=== PATIENT | male | born 1965 | race Caucasian/White ===

== ENCOUNTER 2021-12-15 19:01 | Inpatient (IN) | payer OTHER, MEDICAID ==
[~2021-12-15] VITALS: Ht 185.4 cm; Wt 126.8 kg
[2021-12-15] MEDS ORDERED: ASPirin 325 MG TAB PO ONE (19:15)
[2021-12-15] MEDS ORDERED: NITROGLYCERIN 0.4 MG SL TAB SL ONE (19:15)
[2021-12-15 19:35] LABS: Basophils # (auto) 0 10 ^3/uL (0-0.2); Basophils % (auto) 0.3 % (0.0-2.0); Eosinophils # (auto) 0.1 10 ^3/uL (0-0.8); Eosinophils % (auto) 1.8 % (0.0-7.0); Hematocrit 38.3 % (41.0-53.0); Lymphocytes # (auto) 2.3 10 ^3/uL (0.4-5.4); Lymphocytes % (auto) 40.6 % (10.0-50.0); Mean Corpuscular Hemoglobin 33.3 pg (28.0-32.0); Mean Corpuscular Volume 97.9 fL (80.0-100.0); Monocytes # (auto) 0.7 10 ^3/uL (0-1.3); Monocytes % (auto) 11.6 % (0.0-12.0); Neutrophils # (auto) 2.6 10 ^3/uL (1.6-8.6); Neutrophils % (auto) 45.7 % (37.0-80.0); Red Blood Cells 3.91 10^6/uL (4.5-5.90); Red Cell Distribution Width 14.9 % (11.8-14.3); White Blood Cell 5.6 10^3/uL (4.4-10.8)
[2021-12-15 19:45] LABS: Albumin 3.3 g/dL (3.4-5.0); Calcium 8.6 mg/dL (8.5-10.1); Potassium 4.5 mmol/L (3.5-5.1)
[2021-12-15 19:49] LABS: BUN/Creatinine Ratio 14.6; Bilirubin, Total 0.3 mg/dL (0.2-1.0); Total Protein 7.1 g/dL (6.4-8.2)
[2021-12-15 19:50] LABS: Lactic Acid w/Reflex 2.4 mmol/L (0.4-2.0)
[2021-12-15 20:45] LABS: Urine Bacteria NONE SEEN /hpf (None Seen); Urine Blood Negative /uL (Negative); Urine Specific Gravity 1.019 (1.001-1.035); Urine WBC <1 /hpf (0 - 3)
[2021-12-15 20:56] LABS: Amphetamine Screen, Urine NEGATIVE (NEGATIVE); Barbiturate Scree,Urine NEGATIVE (NEGATIVE); Benzodiazephine Screen, Urine NEGATIVE (NEGATIVE); Cannabinoid Screen, Urine POSITIVE (NEGATIVE); Cocaine Screen, Urine NEGATIVE (NEGATIVE); Opiate Scree,Urine NEGATIVE (NEGATIVE); Phencyclidine Screen, Urine NEGATIVE (NEGATIVE)
[2021-12-15] MEDS ORDERED: DexAMETHasone SOD PHOS 10MG/1ML VIAL INJ IV ONE (21:45)
[2021-12-15] MEDS ORDERED: TEMAZEPAM 15 MG CAP PO PRN (23:00)
[2021-12-15] MEDS ORDERED: LISINOPRIL 5 MG TAB PO ONE (23:00)
[2021-12-15] MEDS ORDERED: DEXTROSE (50%) 50ML SYRG IV PRN (23:00)
[2021-12-15] MEDS ORDERED: ALBUTEROL SULF 2.5 MG/0.5ML(0.5%) NEB SOLN NEB PRN (23:00)
[2021-12-15] MEDS ORDERED: ACETAMINOPHEN 325 MG TAB PO PRN (23:00)
[2021-12-15] MEDS ORDERED: MORPHINE SULFATE INJ 2 MG/ml SYRG IV PRN (23:00)
[2021-12-15] MEDS ORDERED: ONDANSETRON HCL 4 MG/2 ML VIAL IV PRN (23:00)
[2021-12-15] MEDS ORDERED: NITROGLYCERIN 0.4 MG SL TAB SL PRN (23:00)
[2021-12-15 23:11] VITALS: BP 134/66
[2021-12-16] MEDS: InsuLIN REG 1unit/0.01ml Soln (100units/ml) SC SCH ×4 (00:36→18:00)
[2021-12-16] MEDS: cefTRIAXone 1GM/50ML D5W 50 ML IV SCH (05:06)
[2021-12-16] MEDS: ACCU-CHEK COMFORT CURVE STRIP VI SCH ×4 (05:57→18:00)
[2021-12-16] MEDS: LEVOTHYROXINE SODIUM 25 MCG TAB PO SCH (07:08)
[2021-12-16 09:30] VITALS: BP_SYST 123; BP_SYST 137; BP_DIAS 69; BP_DIAS 78
[2021-12-16] MEDS ORDERED: GLIP10TA9 PO (09:59)
[2021-12-16] MEDS ORDERED: LEVO88TA4 PO (09:59)
[2021-12-16] MEDS ORDERED: METF-372 PO (09:59)
[2021-12-16] MEDS ORDERED: ATOR40TA52 PO (09:59)
[2021-12-16] MEDS: ENOXAPARIN SOD 40 MG/0.4 ML SYRINGE SC SCH (10:00)
[2021-12-16 10:19] LABS: Albumin 3.4 g/dL (3.4-5.0); Potassium 4.8 mmol/L (3.5-5.1)
[2021-12-16] MEDS: ASPirin 81 mg TAB PO SCH (10:20)
[2021-12-16] MEDS: PANTOPRAZOLE 40 MG TAB PO SCH (10:20)
[2021-12-16] MEDS: ASCORBIC ACID 500 MG TAB PO SCH ×2 (10:20→21:58)
[2021-12-16] MEDS: ZINC SULFATE 220mg CAP or TAB PO SCH (10:20)
[2021-12-16 10:23] LABS: BUN/Creatinine Ratio 16.3; Bilirubin, Total 0.2 mg/dL (0.2-1.0); Total Protein 7.4 g/dL (6.4-8.2)
[2021-12-16] MEDS: LISINOPRIL 5 MG TAB PO SCH (10:23)
[2021-12-16 10:28] LABS: Basophils # (auto) 0 10 ^3/uL (0-0.2); Eosinophils # (auto) 0 10 ^3/uL (0-0.8); Mean Corpuscular Hgb Conc. 34.9 g/dL (32.0-36.0); Monocytes # (auto) 0.3 10 ^3/uL (0-1.3)
[2021-12-16 10:30] LABS: Basophils % (auto) 0.4 % (0.0-2.0); Hematocrit 38.6 % (41.0-53.0); Hemoglobin 13.5 g/dL (13.5-17.5); Lymphocytes # (auto) 0.9 10 ^3/uL (0.4-5.4); Lymphocytes % (auto) 10.4 % (10.0-50.0); Mean Corpuscular Hemoglobin 34.3 pg (28.0-32.0); Mean Corpuscular Volume 98.4 fL (80.0-100.0); Monocytes % (auto) 3.2 % (0.0-12.0); Neutrophils # (auto) 7.3 10 ^3/uL (1.6-8.6); Red Blood Cells 3.92 10^6/uL (4.5-5.90); Red Cell Distribution Width 15.5 % (11.8-14.3); White Blood Cell 8.5 10^3/uL (4.4-10.8)
[2021-12-16] MEDS ORDERED: REMDESIVIR PER PHARMACY 0 ML IV SCH (11:30)
[2021-12-16] MEDS ORDERED: DexAMETHasone 4 MG TAB PO ONE (11:30)
[2021-12-16 13:00] VITALS: BP 135/67
[2021-12-16] MEDS ORDERED: REMDESIVIR 100mg 100 MG in SODIUM CHL 0.9% 230 ML IV SCH (15:00)
[2021-12-16] MEDS ORDERED: REMDESIVIR 200 MG in NS 210ml LOADING DOSE ADULT IV ONE (15:00)
[2021-12-16 16:59] VITALS: BP 139/63
[2021-12-16] MEDS ORDERED: HYDROcodone-ACET 10/325MG TAB PO ONE (19:15)
[2021-12-16 22:00] VITALS: BP 133/67
[2021-12-16] MEDS ORDERED: ATORVASTATIN 20 MG TAB PO SCH (22:00)
[2021-12-17 05:00] VITALS: BP_SYST 109; BP_SYST 121; BP_DIAS 50; BP_DIAS 71
[2021-12-17] MEDS: InsuLIN REG 1unit/0.01ml Soln (100units/ml) SC SCH ×3 (05:57→12:00)
[2021-12-17] MEDS: ACCU-CHEK COMFORT CURVE STRIP VI SCH ×3 (06:04→12:00)
[2021-12-17 06:51] LABS: Basophils # (auto) 0.1 10 ^3/uL (0-0.2); Basophils % (auto) 0.8 % (0.0-2.0); Eosinophils # (auto) 0 10 ^3/uL (0-0.8); Hemoglobin 13.1 g/dL (13.5-17.5); Lymphocytes # (auto) 1.5 10 ^3/uL (0.4-5.4); Lymphocytes % (auto) 18.9 % (10.0-50.0); Mean Corpuscular Hemoglobin 33.9 pg (28.0-32.0); Mean Corpuscular Hgb Conc. 34.5 g/dL (32.0-36.0); Mean Corpuscular Volume 98.3 fL (80.0-100.0); Monocytes # (auto) 0.6 10 ^3/uL (0-1.3); Monocytes % (auto) 7.3 % (0.0-12.0); Neutrophils # (auto) 5.6 10 ^3/uL (1.6-8.6); Nucleated Red Blood Cells % 0.3 %; Red Blood Cells 3.87 10^6/uL (4.5-5.90); Red Cell Distribution Width 14.9 % (11.8-14.3); White Blood Cell 7.7 10^3/uL (4.4-10.8)
[2021-12-17 06:53] LABS: Potassium 4.7 mmol/L (3.5-5.1)
[2021-12-17 07:01] LABS: Albumin 3.1 g/dL (3.4-5.0); BUN/Creatinine Ratio 20.8; Bilirubin, Total 0.4 mg/dL (0.2-1.0); Calcium 8.7 mg/dL (8.5-10.1); Total Protein 6.9 g/dL (6.4-8.2)
[2021-12-17 09:00] VITALS: BP 160/60
[2021-12-17] MEDS ORDERED: ETOMIDATE (2MG/ML) 20ML VIAL IV ONE (09:35)
[2021-12-17] MEDS ORDERED: ROCURONIUM 10MG/ML 10ML VIAL IV ONE (09:36)
[2021-12-17] MEDS ORDERED: DexAMETHasone 4 MG TAB PO SCH (10:00)
[2021-12-17] MEDS: ASPirin 81 mg TAB PO SCH (10:00)
[2021-12-17] MEDS: ENOXAPARIN SOD 40 MG/0.4 ML SYRINGE SC SCH (10:00)
[2021-12-17] MEDS: LEVOTHYROXINE SODIUM 25 MCG TAB PO SCH (10:16)
[2021-12-17] MEDS: ZINC SULFATE 220mg CAP or TAB PO SCH (10:18)
[2021-12-17] MEDS: PANTOPRAZOLE 40 MG TAB PO SCH (10:19)
[2021-12-17] MEDS: ASCORBIC ACID 500 MG TAB PO SCH (10:19)
[2021-12-17] MEDS: LISINOPRIL 5 MG TAB PO SCH (10:20)
[2021-12-17] MEDS: cefTRIAXone 1GM/50ML D5W 50 ML IV SCH (10:21)
[2021-12-17] MEDS ORDERED: PRED20TA2 PO (10:39)
[2021-12-17] MEDS ORDERED: AMOX500T86 PO (10:39)
[2021-12-17 11:48] VITALS: BP 160/61
[2021-12-17] MEDS ORDERED: REMDESIVIR 100mg 100 MG in SODIUM CHL 0.9% 230 ML IV SCH (15:00)
== END 2021-12-17 12:54 | disposition home or self-care (01) | DRG 177 ==
LOC: ER 19:05 → TELE 23:04 → TELE-WESTW 12-16 09:28
PROVIDERS: ADMIT Nurse Practitioner; ATTEND Internal Medicine Pulmonary Disease
PROC: XW033E5 Introduction of Remdesivir Anti-infective into Peripheral Vein, Percutaneous Approach, New Technology Group 5 (ICD-10-PCS; principal; 2021-12-16)
DX: U07.1 COVID-19 (principal); J96.01 Acute respiratory failure with hypoxia; E11.9 Type 2 diabetes mellitus without complications; F17.210 Nicotine dependence, cigarettes, uncomplicated; E78.5 Hyperlipidemia, unspecified; E66.9 Obesity, unspecified; Z68.36 Body mass index [BMI] 36.0-36.9, adult; Z79.84 Long term (current) use of oral hypoglycemic drugs
CPT/HCPCS: 36415; 71045; 80053; 80307; 81001; 82962; 83605; 83880; 84484; 85025; 85379; 87040; 93005; 93306; 96365; 96375; G0378; J0696; J1100; J1815

== ENCOUNTER 2024-12-27 12:21 | Inpatient (IN) | payer MEDICARE, MEDICAID ==
[~2024-12-27] VITALS: Ht 180.3 cm; Wt 114.1 kg
[~2024-12-27 12:21] MED LIST: AMOX500T86 PO; ATOR40TA52 PO; GLIP10TA9 PO; LEVO88TA4 PO; METF-372 PO; PRED20TA2 PO
[2024-12-27 13:00] VITALS: RESP 12; O2SAT 91
--- NOTE | 2024-12-27 13:01 | ED.PDOC ---
History of Present Illness(SKN HPI Comments This is a 59 year-old male, with a Hx of DM and Neuropathy, who presents to the ED via EMS with a chief complaint of wound to the R gluteal cheek and R foot S/P fall X2 days ago. Patient reports wound to the R foot is healing. Redness is noted at the R gluteal cheek site upon evaluation. Patient has no further complaints at this time and otherwise denies N/V/D, fever, chills, dizziness, headache, or LOC. Chief Complaint: Wound Check Time Seen by MD: 12:33 Primary Care Provider: Elan History of Present Illness: Nurses Notes, Medications, Allergies Allergies: Coded Allergies: NO KNOWN ALLERGIES (Unverified , 12/15/21) Home Meds Active Scripts Prednisone (Prednisone) 20 Mg Tab, 20 MG PO BID for 5 Days, #10 TAB Prov:JAQUELINE BEY MD 12/17/21 Amoxicillin & Pot Clavulanate (Augmentin) 500 Mg Tab, 1 TAB PO BID, #14 TAB Prov:JAQEULINE BEY MD 12/17/21 Reported Medications Atorvastatin Calcium (ATORVASTATIN CALCIUM) 40 Mg Tab, 1 TAB PO QPM, #90 TAB 3 Refills 12/16/21 Levothyroxine Sodium (Levothyroxine Sodium) 88 Mcg Tab, 75 MCG PO QAM for 30 Days, MCG 12/16/21 Metformin Hydrochloride (Metformin Hcl) 1,000 Mg Tab, 1 TAB PO BID, #60 TAB 5 Refills 12/16/21 Glipizide (Glipizide) 10 Mg Tab, 10 MG PO DAILY for 30 Days, MG 12/16/21 Information Source: Patient Mode of Arrival: EMS Severity: Moderate Duration: Since onset Prehospital treatment: None Location: Buttock (Right ), Foot (R) Mechanism: Spontaneous Onset Immunization Status of Animal: Current Associated Signs and Symptoms: Other (wound to R gluteal cheek and R foot) Past Medical History PAST MEDICAL HISTORY: DM Past Medical History (Other): Neuropathy Family History Family History: Reviewed,noncontributory to illness Social History Smoker: Cigarettes Alcohol: Denies ETOH Use Drugs: Denies Drug Use Lives In: Home Constitutional: denies: chills, diaphoresis, fatigue, fever, malaise, sweats, weakness, others EENTM: denies: blurred vision, double vision, ear bleeding, ear discharge, ear drainage, ear pain, ear ringing, eye pain, eye redness, hearing loss, mouth pain, mouth swelling, nasal discharge, nose bleeding, nose congestion, nose pain, photophobia, tearing, throat pain, throat swelling, voice changes, others Respiratory: denies: cough, hemoptysis, orthopnea, SOB at rest, shortness of breath, SOB with excertion, stridor, wheezing, others Cardiovascular: denies: chest pain, dizzy spells, diaphoresis, Dyspnea on exertion, edema, irregular heart beat, left arm pain, lightheadedness, palpitations, PND, syncope, others Gastrointestinal: denies: abdomen distended, abdominal pain, blood streaked bowels, constipated, diarrhea, dysphagia, difficulty swallowing, hematemesis, melena, nausea, poor appetite, poor fluid intake, rectal bleeding, rectal pain, vomiting, others Genitourinary: denies: burning, dysuria, flank pain, frequency, hematuria, incontinence, penile discharge, penile sore, pain, testicle pain, testicle swelling, urgency, others Neurological: denies: dizziness, fainting, headache, left sided numbness, left sided weakness, numbness, paresthesia, pre-existing deficit, right sided numbness, right sided weakness, seizure, speech problems, tingling, tremors, weakness, others Musculoskeletal: denies: back pain, gout, joint pain, joint swelling, muscle pain, muscle stiffness, neck pain, others Integumetry: reports: wounds (R buttock cheek and R foot); denies: bruises, change in color, change in hair/nails, dryness, laceration, lesions, lumps, rash, others Allergic/Immunocompromised: denies: Difficulty Healing, Frequent Infections, Hives, Itching, others Hematologic/Lymphatic: denies: anemia, blood clots, easy bleeding, easy bruising, swollen glands, others Endocrine: denies: excessive hunger, excessive sweating, excessive thirst, excessive urination, flushing, intolerance to cold, intolerance to heat, unexplained weight gain, unexplained weight loss, others Psychiatric: denies: anxiety, bipolar disorder, depression, hopeless, panic disorder, schizophrenia, sleepless, suicidal, others All Other Systems: Reviewed and Negative Physical Exam General Appearance: Moderate Distress HEENT: Normal ENT Inspection, Pharynx Normal, TMs Normal Neck: Full Range of Motion, Non-Tender, Normal, Normal Inspection Respiratory: Chest Non-Tender, Lungs Clear, No Accessory Muscle Use, No Respiratory Distress, Normal Breath Sounds Cardiovascular: No Edema, No JVD, No Murmur, No Gallop, Normal Peripheral Pulses, Regular Rate/Rhythm Breast Exam: Deferred Gastrointestinal: No Organomegaly, Non Tender, No Pulsatile Mass, Normal Bowel Sounds, Soft Genitalia: Deferred Pelvic: Deferred Rectal: Deferred Extremities: No calf tenderness, Normal capillary refill, No pedal edema, Other (Amputation of bilateral toes) Musculoskeletal : Apperance: Normal Neurologic: Alert, bacon skinner II-XII nml as Tested, No Motor Deficits, Normal Affect, Normal Mood, No Sensory Deficits Cerebellar Function: NOT DONE Reflexes: NOT DONE Skin: Wounds (Right foot buttocks) Peripheral Pulses: 3+ Radial (R), 3+ Radial (L) Lymphatic: No Adenopathy Was a procedure done? Was a procedure done?: No Differential Diagnosis (INTG) Differential Diagnosis: Abrasion, Cellulitis, Fracture, Puncture Wound X-Ray, Labs, Meds, VS Vital Signs Date Time Temp Pulse Resp B/P (MAP) Pulse Ox O2 Delivery O2 Flow Rate FiO2 12/27/24 13:00 97.8 62 13 141/89 (106) 97 97.8 12/27/24 12:46 98.0 78 25 119/70 100 98.0 Lab Test 12/27/24 13:30 12/27/24 13:25 Range/Units POC Glucose 223 H 70-106 mg/dl White Blood Count 10.7 4.4-10.8 10^3/uL Red Blood Count 3.85 L 4.5-5.90 10^6/uL Hemoglobin 13.5 13.5-17.5 g/dL Hematocrit 38.6 L 41.0-53.0 % Mean Corpuscular Volume 100.4 H 80.0-100.0 fL Mean Corpuscular Hemoglobin 35.0 H 28.0-32.0 pg Mean Corpuscular Hemoglobin Concent 34.9 32.0-36.0 g/dL Red Cell Distribution Width 13.5 11.8-14.3 % Platelet Count 203 140-450 10^3/uL Mean Platelet Volume 7.4 6.9-10.8 fL Neutrophils (%) (Auto) 80.0 37.0-80.0 % Lymphocytes (%) (Auto) 13.0 10.0-50.0 % Monocytes (%) (Auto) 6.1 0.0-12.0 % Eosinophils (%) (Auto) 0.3 0.0-7.0 % Basophils (%) (Auto) 0.6 0.0-2.0 % Neutrophils # (Auto) 8.5 1.6-8.6 10 ^3/uL Lymphocytes # (Auto) 1.4 0.4-5.4 10 ^3/uL Monocytes # (Auto) 0.7 0-1.3 10 ^3/uL Eosinophils # (Auto) 0 0-0.8 10 ^3/uL Basophils # (Auto) 0.1 0-0.2 10 ^3/uL Nucleated Red Blood Cells 0.1 % Prothrombin Time 12.3 H 9.3-11.8 sec Prothrombin Time INR 1.18 H 0.9-1.15 Activated Partial Thromboplast Time 29.2 24.5-34.5 SEC Sodium Level 133 L 136-145 mmol/L Potassium Level 4.0 3.5-5.1 mmol/L Chloride Level 97 L 98-107 mmol/L Carbon Dioxide Level 28 20-31 mmol/L Anion Gap 8 5-15 Blood Urea Nitrogen 11 9-23 mg/dL Creatinine 0.86 0.700-1.30 mg/dL Glomerular Filtration Rate Calc 99 >90 mL/min BUN/Creatinine Ratio 12.8 10.0-20.0 Serum Glucose 215 H 74-106 mg/dL Lactic Acid Level 2.8 *H 0.4-2.0 mmol/L Calcium Level 9.1 8.7-10.4 mg/dL Total Bilirubin 0.6 0.2-1.0 mg/dL Aspartate Amino Transferase (AST) 60 H 13-40 U/L Alanine Aminotransferase (ALT) 54 H 7-40 U/L Alkaline Phosphatase 96 46-116 U/L Total Protein 7.0 5.7-8.2 g/dL Albumin 3.8 3.2-4.8 g/dL Current Medications Medications (Trade) Dose Ordered Sig/Yuliya Route Start Time Stop Time Status Last Admin Insulin Human Regular (InsuLIN R) 10 units ONCE ONCE IV 12/27/24 13:15 12/27/24 13:17 DC 12/27/24 13:39 Vancomycin HCl 250 ml @ 250 mls/hr ONCE ONCE IV 12/27/24 13:15 12/27/24 14:14 DC 12/27/24 13:40 Patient alert. Has a wound in the right foot as along the buttocks. AST ALT elevated. Answering questions. Lactic acid elevated. Was given antibiotics. Blood sugar elevated. Establish intravenous access. Was given fluids. Explained to the patient. Continue monitoring. Images Reviewed?: Images reviewed and evaluated by me Time of 1ST Reevaluation: 13:32 Reevaluation 1ST: Unchanged Patient Education/Counseling: Diagnosis, Treatment Family Education/Counseling: No Family Present Medical Screening: No EMC Exist At This Time SEPSIS Sepsis Screen Date sepsis recognized/suspect: Dec 27, 2024 Time Sepsis recognized/suspect: 1249 Recent Procedure: No On Antibiotic Therapy: No Respiratory Rate >20: No Heart Rate >90: No Temp<36 C (96.8 F) or >38.3 C: No SBP <90 or MAP <65 mmHG: No New Acute Mental Status Change: No Is the patient on CPAP, BIPAP,: No Physician Orders Urinalysis (12/27/24 13:14) Chest Portable (12/27/24 13:14) Accucheck (12/27/24 13:14) Blood Culture (12/27/24 13:14) Cefepime 1gm/50ml (Maxipime 1gm/50ml) (12/27/24 14:00) Notify Md If Map <65 Or Bp<90 (12/27/24 13:14) If Map<65 Start Vasopressor (12/27/24 13:14) Sepsis Reassesment After Fluid (12/27/24 14:14) Vital Signs Date Time Temp Pulse Resp B/P (MAP) Pulse Ox O2 Delivery O2 Flow Rate FiO2 12/27/24 13:00 97.8 62 13 141/89 (106) 97 97.8 12/27/24 12:46 98.0 78 25 119/70 100 98.0 Laboratory Tests Test 12/27/24 13:25 Lactic Acid Level 2.8 mmol/L (0.4-2.0) *H White Blood Count 10.7 10^3/uL (4.4-10.8) Medications Medications Dose Ordered Sig/Yuliya Route Start Time Stop Time Status Last Admin Dose Admin Insulin Human Regular 10 units ONCE ONCE IV 12/27/24 13:15 12/27/24 13:17 DC 12/27/24 13:39 Vancomycin HCl 250 ml @ 250 mls/hr ONCE ONCE IV 12/27/24 13:15 12/27/24 14:14 DC 12/27/24 13:40 Departure 1 Departure Time of Disposition: 14:49 Impression: Primary Impression: Sepsis, unspecified organism Qualified Codes: A41.9 - Sepsis, unspecified organism Disposition: ADMITTED INPATIENT Admit to: Med Surg Condition: Guarded Critical Care Note Critical Care Time?: Yes (90 min-critical care time only) Stability Stability form required: No Heart Score Heart Score: Heart Score Response (Comments) Value History N/A 0 EKG N/A 0 Age N/A 0 Risk Factors N/A 0 Troponin N/A 0 Total 0 I personally scribed for ARMIDA DONATO MD ([email or web address]) on 12/27/24 at 13:01. Electronically submitted by Jenna Wagner ([facility]). I personally scribed for ARMIDA DONATO MD ([email or web address]) on 12/27/24 at 13:08. Electronically submitted by Jenna Wagner ([facility]). I personally scribed for ARMIDA DONATO MD ([email or web address]) on 12/27/24 at 13:11. Electronically submitted by Jenna Wagner ([facility]). I personally scribed for ARMIDA DONATO MD ([email or web address]) on 12/27/24 at 13:19. Electronically submitted by Jenna Wagner ([facility]). ARMIDA DONATO MD Dec 27, 2024 13:01
[2024-12-27] MEDS: InsuLIN REG 1unit/0.01ml Soln (100units/ml) IV ONE (13:39)
[2024-12-27] MEDS: VANCOMYCIN 1GM/250ML KIT 250 ML IV ONE (13:40)
[2024-12-27 13:41] LABS: Hematocrit 38.6 % (41.0-53.0); Hemoglobin 13.5 g/dL (13.5-17.5); Mean Corpuscular Hemoglobin 35.0 pg (28.0-32.0); Mean Corpuscular Volume 100.4 fL (80.0-100.0); Nucleated Red Blood Cells % 0.1 %
[2024-12-27 13:53] LABS: INR 1.18 (0.9-1.15); Partial Thromboplastin Time 29.2 SEC (24.5-34.5); Prothrombin Time 12.3 sec (9.3-11.8)
--- NOTE | 2024-12-27 13:57 | DVH ---
EXAM: XY CHEST PORTABLE Indication: sob Technique: Single frontal view of the chest was obtained Comparison: CHEST PORTABLE on DOS: 12/15/21, CXRP on DOS: 12/15/21 FINDINGS: Lines and Tubes: None Lungs: No focal consolidation. Pleura: No effusion. No pneumothorax. Cardiomediastinal contours: Unremarkable Bones: No acute osseous abnormality. IMPRESSION: No acute cardiopulmonary disease.
[2024-12-27 14:00] LABS: Albumin 3.8 g/dL (3.2-4.8); Alkaline Phosphatase 96 U/L (46-116); Anion Gap 8 (5-15); BUN/Creatinine Ratio 12.8 (10.0-20.0); Bilirubin, Total 0.6 mg/dL (0.2-1.0); Blood Urea Nitrogen 11 mg/dL (9-23); Calcium 9.1 mg/dL (8.7-10.4); Carbon Dioxide 28 mmol/L (20-31); Potassium 4.0 mmol/L (3.5-5.1); Total Protein 7.0 g/dL (5.7-8.2)
[2024-12-27 14:03] LABS: Alanine Aminotransferase 54 U/L (7-40); Chloride 97 mmol/L (98-107); Glucose 215 mg/dL (74-106); Sodium 133 mmol/L (136-145)
[2024-12-27 14:07] LABS: Lactic Acid w/Reflex 2.8 mmol/L (0.4-2.0)
[2024-12-27] MEDS: CEFEPIME 1GM/50ML 50 ML IV ONE (14:52)
[2024-12-27] MEDS ORDERED: SODIUM CHLORIDE 0.9% 1,000 ML IV ONE (15:00)
[2024-12-27] MEDS: SODIUM CHLORIDE 0.9% 1,000 ML IV ONE (15:23)
[2024-12-27] MEDS ORDERED: DEXTROSE (50%) 50ML SYRG IV PRN (15:45)
[2024-12-27] MEDS ORDERED: ONDANSETRON HCL 4 MG/2 ML VIAL IV PRN (15:45)
[2024-12-27] MEDS ORDERED: ACETAMINOPHEN 325 MG TAB PO PRN (15:45)
[2024-12-27] MEDS ORDERED: VANCOMYCIN PER PHARMACY 0 MG IV SCH (15:45)
--- NOTE | 2024-12-27 16:16 | DVH ---
EXAM: CT CT AB PEL WO CON-NO ORAL OR IV INDICATION: pleviccellulitis TECHNIQUE: Volumetric multidetector CT images of the abdomen and pelvis were obtained without contras t. All CT scans at this facility use dose modulation, iterative reconstruction, and/or weight based d osing when appropriate to reduce radiation dose to as low as reasonably achievable. COMPARISON: [facility] on DOS: 12/16/21 FINDINGS: [LOWER CHEST]: The partially visualized lung bases are clear without a pleural effusion. The cardiac size is normal without pericardial effusion. [LIVER]: Normal hepatic size without suspicious focal lesion. [GALLBLADDER AND BILIARY TREE]: No cholelithiasis. [SPLEEN]: Unremarkable. [PANCREAS]: Unremarkable. [ADRENAL GLANDS]: Unremarkable [KIDNEYS]: No hydronephrosis. No nephroureterolithiasis. [BLADDER]: Unremarkable for the degree distention. [REPRODUCTIVE ORGANS]: Unremarkable. [BOWEL/MESENTERY]: Stomach is normal. No CT evidence of bowel obstruction. proximal sigmoid colonic d iverticulosis. [ASCITES]: Absent [LYMPHADENOPATHY]: No pathologically enlarged lymph nodes by CT size criteria [VASCULATURE]: No aneurysmal dilatation. [ABDOMINAL WALL]: Unremarkable. [MUSCULOSKELETAL]: Significant abnormal air-fluid collection located along the left medial inferior b uttock extending towards the rectum measuring 8 x 5.4 cm. Edema extending superiorly along the ischio anal fossa. Significant abnormal inflammatory stranding extending along the intergluteal cleft and as ymmetric thickening possibly of the left external sphincter of the anal verge. Multifocal degenerativ e change of the visualized spine. IMPRESSION: 1. Significant abnormal air-fluid collection located along the left medial inferior buttock extending towards the rectum measuring 8 x 5.4 cm. 2. Edema extending superiorly along the ischioanal fossa. 3. Significant abnormal inflammatory stranding propagating along the intergluteal cleft and asymmetri c thickening possibly of the left external sphincter of the anal verge. 4. Overall appearance superior rectal abscess however correlate for sequelae of sacral decubitus jeanette reaves
--- NOTE | 2024-12-27 16:33 | DVH ---
ULTRASOUND ABDOMEN, LIMITED RIGHT UPPER QUADRANT: REASON FOR EXAM: transaminitis TECHNIQUE: Real-time sector scans in the transverse and longitudinal planes were obtained through th e right upper quadrant of the abdomen. FINDINGS: The liver is enlarged at 23.3 cm in length. The liver is diffusely echogenic. There is he patopetal flow in the portal vein. There is no intrahepatic nor extrahepatic biliary ductal dilatati on. The common bile duct measures 4 mm. No gallstones or sludge are identified. There is no gallbl adder wall thickening nor pericholecystic fluid. There is no sonographic Moreno's sign. The visualized portion of the pancreas is unremarkable. The right kidney measures 11.8 cm. No hydronephrosis or nephrolithiasis is identified. There is no evidence of right renal mass or cyst. The visualized portions of the abdominal aorta demonstrate no evidence of aneurysmal dilatation. The visualized inferior vena cava is unremarkable. There is no free fluid identified in the right upper quadrant. IMPRESSION: Hepatomegaly The liver is diffusely echogenic which may be secondary to steatosis or another diffuse hepatic proce ss. Correlate clinically and with liver function tests.
[2024-12-27] MEDS: SODIUM CHLORIDE 0.9% 1,000 ML IV SCH (16:52)
--- NOTE | 2024-12-27 16:56 | DVHHPRES ---
History of Present Illness Resident Creating Document: PAUL BOYCE RESIDENT Reason for Visit: Wound check History of Present Illness This is a 59-year-old male who came into the ED via EMS with a chief complain of wound in the right gluteal area. PMH: Type 2 diabetes, diabetic neuropathy. PSH: Bilateral metatarsal amputation, hernia surgery. SH: Drinks alcohol occasionally, smokes tobacco since 50 years ago one pack per day. States having done meth for 14 years, quit 25 years ago. Patient states that he has a fall from the toilet three days ago, due to his bilateral metatarsal amputation he sometimes has trouble walking, he misstepped and fell on his buttock area did not hit his head and did not lose consciousness. He states having significant pain and bleeding from the area. For the next couple of days he started experiencing chills, fevers, fatigue, diaphoresis, general malaise. He denies any chest pain, shortness of breath, abdominal pain, nausea, vomiting, urinary symptoms, diarrhea. He denies any recent sick contacts. On arrival to the ED, patient was given 2 L IV fluids, he was started on cefepime and vancomycin. Insulin IV was given. He was noted to have hyp erglycemia, lactic acidosis. On my initial assessment, patient was seen and examined at bedside, he stated having moderate pain on the right gluteal and perianal area. He denied any other symptoms. Review of Systems Constitutional: Yes: Fever, Chills, Sweats, Weakness, Malaise; No: Other Eyes: No: Pain, Vision change, Conjunctivae inflammation, Eyelid inflammation, Other, Redness ENT: No: Ear pain, Ear discharge, Nose pain, Nose discharge, Nose congestion, Mouth pain, Mouth swelling, Throat pain, Throat swelling, Other Respiratory: No: Cough, Dry, Shortness of breath, SOB with excertion, Wheezing, Hemoptysis, Pleuritic Pain, Sputum, Wheezing, Other Cardiovascular: No: Chest Pain, Palpitations, Orthopnea, Paroxysmal Noc. Dyspnea, Edema, Lt Headedness, Other Gastrointestinal: No: Nausea, Vomiting, Abdominal Pain, Diarrhea, Constipation, Melena, Hematochezia, Other Genitourinary: No Dysuria, No Frequency, No Incontinence, No Hematuria, No Retention, No Other Musculoskeletal: No: other, neck pain, shoulder pain, arm pain, back pain, hand pain, leg pain, foot pain Skin: Lesions; No: Rash, Jaundice, Bruising, Other Neurological: No: Weakness, Numbness, Incoordination, Change in speech, Confusion, Seizures, Other Allergies: Coded Allergies: NO KNOWN ALLERGIES (Unverified , 12/15/21) Medications Current Medications Medications Dose Ordered Sig/Yuliya Route Start Time Stop Time Status Last Admin Dose Admin Sodium Chloride 10 ml Q8HR IV 12/27/24 22:00 Sodium Chloride 1,000 ml @ 120 mls/hr Q8H20M IV 12/27/24 15:45 Acetaminophen 325 mg Q4HP PRN PO 12/27/24 15:45 Ondansetron HCl 4 mg Q4HP PRN IV 12/27/24 15:45 Enoxaparin Sodium 40 mg DAILY SC 12/28/24 10:00 Morphine Sulfate 2 mg Q4HPRN PRN IV 12/27/24 15:45 Diagnostic Test (Pha) 1 strip ACHS 12/27/24 17:00 Insulin Human Regular ACHS SC 12/27/24 17:00 Dextrose 50 ml UD PRN IV 12/27/24 15:45 Cefepime HCl 50 ml @ 12.5 mls/hr Q8HR IV 12/27/24 22:00 Vancomycin HCl 0 ml @ 0 mls/hr UD IV 12/27/24 15:45 Exam Vital Signs Vital Signs Date Time Temp Pulse Resp B/P (MAP) Pulse Ox O2 Delivery O2 Flow Rate FiO2 12/27/24 16:06 97.1 78 23 124/73 (90) 94 97.1 12/27/24 13:00 Room Air* 0 21 Exam Physical examination as below: General: Awake, alert, in no acute distress. HEENT: Head is normocephalic and atraumatic. Pupils are equal, round, and reactive to light. Extraocular muscles are intact. No nasal discharge. No facial trauma. Neck: Supple with no cervical lymphadenopathy. Heart: Regular rate without murmur, rub, or gallop. Lungs: Equal breath sounds bilaterally with no wheezing, rales, or rhonchi. There is no chest wall tenderness or instability. Abdomen:Bowel sounds are present. Abdomen is soft, nontender. No rebound, no guarding, no rigidity. There are no palpable masses. There is no flank pain on exam. Old Surgical scar on periumbilical area, no signs of infection. Extremities: Peripheral pulses present. No cyanosis, and no edema. Bilateral transmetatarsal amputation Skin: Right lower gluteal area erythematous, with tenderness to palpation, with a small we will ulcer wound draining yellow whitish fluid foul odor, area of fluctuance. On perianal area there is skin colored, fleshy, cauliflower-like growths extending up to the genital area. Neurologic: Cranial nerves II-XII intact without motor, sensory, or cerebellar deficit, no asterixis. Physical examination was performed with dowel pin man present. Labs/Xrays Labs Test 12/27/24 15:41 12/27/24 13:30 12/27/24 13:25 Range/Units Lactic Acid Level 1.4 0.4-2.0 mmol/L POC Glucose 223 H 70-106 mg/dl White Blood Count 10.7 4.4-10.8 10^3/uL Red Blood Count 3.85 L 4.5-5.90 10^6/uL Hemoglobin 13.5 13.5-17.5 g/dL Hematocrit 38.6 L 41.0-53.0 % Mean Corpuscular Volume 100.4 H 80.0-100.0 fL Mean Corpuscular Hemoglobin 35.0 H 28.0-32.0 pg Mean Corpuscular Hemoglobin Concent 34.9 32.0-36.0 g/dL Red Cell Distribution Width 13.5 11.8-14.3 % Platelet Count 203 140-450 10^3/uL Mean Platelet Volume 7.4 6.9-10.8 fL Neutrophils (%) (Auto) 80.0 37.0-80.0 % Lymphocytes (%) (Auto) 13.0 10.0-50.0 % Monocytes (%) (Auto) 6.1 0.0-12.0 % Eosinophils (%) (Auto) 0.3 0.0-7.0 % Basophils (%) (Auto) 0.6 0.0-2.0 % Neutrophils # (Auto) 8.5 1.6-8.6 10 ^3/uL Lymphocytes # (Auto) 1.4 0.4-5.4 10 ^3/uL Monocytes # (Auto) 0.7 0-1.3 10 ^3/uL Eosinophils # (Auto) 0 0-0.8 10 ^3/uL Basophils # (Auto) 0.1 0-0.2 10 ^3/uL Nucleated Red Blood Cells 0.1 % Prothrombin Time 12.3 H 9.3-11.8 sec Prothrombin Time INR 1.18 H 0.9-1.15 Activated Partial Thromboplast Time 29.2 24.5-34.5 SEC Sodium Level 133 L 136-145 mmol/L Potassium Level 4.0 3.5-5.1 mmol/L Chloride Level 97 L 98-107 mmol/L Carbon Dioxide Level 28 20-31 mmol/L Anion Gap 8 5-15 Blood Urea Nitrogen 11 9-23 mg/dL Creatinine 0.86 0.700-1.30 mg/dL Glomerular Filtration Rate Calc 99 >90 mL/min BUN/Creatinine Ratio 12.8 10.0-20.0 Serum Glucose 215 H 74-106 mg/dL Calcium Level 9.1 8.7-10.4 mg/dL Total Bilirubin 0.6 0.2-1.0 mg/dL Aspartate Amino Transferase (AST) 60 H 13-40 U/L Alanine Aminotransferase (ALT) 54 H 7-40 U/L Alkaline Phosphatase 96 46-116 U/L Total Protein 7.0 5.7-8.2 g/dL Albumin 3.8 3.2-4.8 g/dL SEPSIS Sepsis Screen Date sepsis recognized/suspect: Dec 27, 2024 Time Sepsis recognized/suspect: 1249 Recent Procedure: No On Antibiotic Therapy: No Respiratory Rate >20: No Heart Rate >90: No Temp<36 C (96.8 F) or >38.3 C: No SBP <90 or MAP <65 mmHG: No New Acute Mental Status Change: No Is the patient on CPAP, BIPAP,: No Physician Orders Urinalysis (12/27/24 13:14) Chest Portable (12/27/24 13:14) Accucheck (12/27/24 13:14) Blood Culture (12/27/24 13:14) Cefepime 1gm/50ml (Maxipime 1gm/50ml) (12/27/24 14:00) Notify Md If Map <65 Or Bp<90 (12/27/24 13:14) If Map<65 Start Vasopressor (12/27/24 13:14) Sepsis Reassesment After Fluid (12/27/24 14:14) Ct Ab Pel Wo Con-No Oral Or Iv (12/27/24 14:51) Admit (12/27/24 15:40) Allergies (12/27/24 15:40) Code Status (12/27/24 15:40) Sodium Chloride Lock (Saline Lock Ns) (12/27/24 22:00) Sodium Chloride 0.9% (12/27/24 15:45) Acetaminophen Tablet (Tylenol Tablet) (12/27/24 15:45) Ondansetron Hcl (Zofran) (12/27/24 15:45) Enoxaparin Sodium (Lovenox) (12/28/24 10:00) Complete Blood Count (12/28/24 04:00) Comprehensive Metabolic Panel (12/28/24 04:00) Condition: Fair (12/27/24 15:40) Morphine Sulfate Injection (12/27/24 15:45) Notify Md Of Changes From Base (12/27/24 15:40) Glucose Blood (Accu-Chek Comfort Curve T (12/27/24 17:00) Insulin R (Human) (Insulin R) (12/27/24 17:00) Dextrose 50% Syringe (12/27/24 15:45) Urine Bacterial Culture (12/27/24 15:40) Drug Screen (12/27/24 15:40) Hiv 1&2 Antibody (12/27/24 15:40) LIVER (12/27/24 15:40) Cefepime 1gm/50ml (Maxipime 1gm/50ml) (12/27/24 22:00) Vancomycin Per Pharmacy (12/27/24 15:45) Mrsa Screen (12/27/24 15:40) Consistent Carb(Ccho)Diabetes (12/27/24 Dinner) Acute Hepatitis Panel (12/27/24 16:13) Hepatitis C Antibody (12/27/24 16:13) Hemoglobin A1c (12/27/24 16:13) Lipid Panel (12/27/24 16:13) * Wound Consult (12/27/24 ) Wound Culture W/ Gs (12/27/24 16:13) Vital Signs Date Time Temp Pulse Resp B/P (MAP) Pulse Ox O2 Delivery O2 Flow Rate FiO2 12/27/24 16:06 97.1 78 23 124/73 (90) 94 97.1 12/27/24 13:00 12 91 Room Air* 0 21 12/27/24 13:00 97.8 62 13 141/89 (106) 97 97.8 12/27/24 12:46 98.0 78 25 119/70 100 98.0 Laboratory Tests Test 12/27/24 13:25 12/27/24 15:41 Lactic Acid Level 2.8 mmol/L (0.4-2.0) *H 1.4 mmol/L (0.4-2.0) White Blood Count 10.7 10^3/uL (4.4-10.8) Medications Medications Dose Ordered Sig/Yuliya Route Start Time Stop Time Status Last Admin Dose Admin Cefepime HCl 50 ml @ 12.5 mls/hr ONCE ONCE IV 12/27/24 14:00 12/27/24 17:59 12/27/24 14:52 12.5 MLS/HR Insulin Human Regular 10 units ONCE ONCE IV 12/27/24 13:15 12/27/24 13:17 DC 12/27/24 13:39 10 UNITS Sodium Chloride 1,000 ml @ 1,000 mls/hr Q1H ONCE IV 12/27/24 15:00 12/27/24 15:59 DC 12/27/24 15:23 1,000 MLS/HR Vancomycin HCl 250 ml @ 250 mls/hr ONCE ONCE IV 12/27/24 13:15 12/27/24 14:14 DC 12/27/24 13:40 250 MLS/HR Assessment/Plan Assessment/Plan #Left Gluteal abscess, rule out rectal fistula #Lactic acidosis #Anal condyloma acuminatum IV fluid bolus given Continue 150 mL per hour of normal saline Cefepime IV Vancomycin IV Clindamycin IV Lactic acid, blood culture, urinalysis, HIV, hepatitis panel, MRSA screen, UDS Wound consult, wound culture Pending CT abdomen and pelvis Surgical consult #Transaminitis Order liver ultrasound #Type 2 diabetes with hyperglycemia, uncontrolled #Bilateral transmetatarsal amputations SSI mild Ordered A1c #Obesity #Dyslipidemia Lipitor 40 mg p.o. q.d. Order lipid panel #Hypothyroidism Levothyroxine 75 mcg q.d. Order TSH #Methamphetamine/Tobacco use disorder Counseled for 16 minutes on tobacco use cessation and 12 minutes for methamphetamine use cessation DVT prophylaxis: Lovenox Goals of care were discussed for 20minutes. Full code Case was discussed with Dr. Lo Plan discussed with: Patient, Other (RN) My Orders Orders - PAUL BOYCE RESIDENT Procedure Category Date Status Time Admit ADMIT 12/27/24 Transmitted 15:40 Allergies ORIN 12/27/24 In Process 15:40 Code Status CODE 12/27/24 Transmitted 15:40 Sodium Chloride Lock PHA 12/27/24 In Process (Saline Lock Ns) 22:00 Sodium Chloride 0.9% PHA 12/27/24 In Process 15:45 Acetaminophen Tablet PHA 12/27/24 In Process (Tylenol Tablet) 15:45 Ondansetron Hcl PHA 12/27/24 In Process (Zofran) 15:45 Enoxaparin Sodium PHA 12/28/24 In Process (Lovenox) 10:00 Complete Blood Count LAB 12/28/24 Verified 04:00 Comprehensive LAB 12/28/24 Verified Metabolic Panel 04:00 Condition: Fair ORIN 12/27/24 In Process 15:40 Morphine Sulfate PHA 12/27/24 In Process Injection 15:45 Notify Of Changes ORIN 12/27/24 In Process From Base 15:40 Glucose Blood PHA 12/27/24 In Process (Accu-Chek Comfort 17:00 Insulin R (Human) PHA 12/27/24 In Process (Insulin R) 17:00 Dextrose 50% Syringe PHA 12/27/24 In Process 15:45 Urine Bacterial STEFF 12/27/24 Logged Culture 15:40 Drug Screen LAB 12/27/24 Logged 15:40 Hiv 1&2 Antibody LAB 12/27/24 In Process 15:40 LIVER US 12/27/24 Taken 15:40 Cefepime 1gm/50ml PHA 12/27/24 In Process (Maxipime 1gm/50ml) 22:00 Vancomycin Per PHA 12/27/24 In Process Pharmacy 15:45 Mrsa Screen STEFF 12/27/24 Logged 15:40 Consistent DIET 12/27/24 Transmitted [facility]Diabetes Dinner Acute Hepatitis Panel LAB 12/27/24 Transmitted 16:13 Hepatitis C Antibody LAB 12/27/24 Transmitted 16:13 Hemoglobin A1c LAB 12/27/24 Transmitted 16:13 Lipid Panel LAB 12/27/24 Transmitted 16:13 * Wound Consult CONS 12/27/24 Transmitted Wound Culture W/ Gs STEFF 12/27/24 Transmitted 16:13 Date of Service: Dec 27, 2024 Billing Provider: ALLA LO MD Common Visit Codes: 42418-HOBHZTY INP/OBS CARE (HIGH) Secondary Visit Codes: 94158-WYLOD CHNG SMOKING >10MIN (Counseled for 16 minutes on tobacco use cessation and 12 minutes for methamphetamine use cessation), 21613-TYXPNAUQ CARE PLAN 30 MINUTES (20 minutes) Addendum Addendum Addendum I was physically present for the henning portions of the service provided to patient by THE RESIDENT. I have reviewed the documentation, discussed the case with resident and agree with the resident's documentation except as noted. Also the patient's clinical case was discussed with the patient's nurse. This medical document was created using an electronic medical record system with computerized dictation system. Although this document has been carefully reviewed, there might still be some phonetic and typographical errors. These areas are purely typographical due to imperfections of the software programs, and do not reflect any compromise in the patient's medical care. Late signature. PAUL BOYCE RESIDENT Dec 27, 2024 16:56 ALLA LO MD Dec 30, 2024 11:42
[2024-12-27] MEDS: InsuLIN REG 1unit/0.01ml Soln (100units/ml) SC SCH (17:35)
[2024-12-27] MEDS: ACCU-CHEK COMFORT CURVE STRIP VI SCH (17:35)
[2024-12-27 17:57] LABS: Urine Protein, UAD TRACE (Negative)
[2024-12-27] MEDS: CLINDAMYCIN 600MG IV 50 ML IV ONE (18:24)
[2024-12-27 19:10] LABS: Cholesterol 147 mg/dL (< 200)
[2024-12-27 19:19] LABS: HDL Cholesterol 16 mg/dL (40-59); Triglycerides 233 mg/dL (< 150)
[2024-12-27 19:21] LABS: Amphetamine Screen, Urine Pos (NEGATIVE); Barbiturate Scree,Urine Neg (NEGATIVE); Benzodiazephine Screen, Urine Neg (NEGATIVE); Cannabinoid Screen, Urine Pos (NEGATIVE); Cocaine Screen, Urine Neg (NEGATIVE); Opiate Scree,Urine Neg (NEGATIVE); Phencyclidine Screen, Urine Neg (NEGATIVE)
[2024-12-27 21:36] VITALS: BP 118/72; PULSE 74; PULSE 86; RESP 20; TEMP 97.6; O2SAT 99
[2024-12-27] MEDS: CEFEPIME 1GM/50ML 50 ML IV SCH (21:39)
[2024-12-27] MEDS: SODIUM CHLOR 0.9% PF (SALINE LOCK) 10ML VIAL/SYR IV SCH (21:39)
[2024-12-27] MEDS: ATORVASTATIN 20 MG TAB PO SCH (21:39)
[2024-12-27] MEDS: MORPHINE SULFATE INJ 2 MG/ml SYRG IV PRN (22:27)
[2024-12-28] VITALS (8 sets, daily range): BP systolic 97–121; BP diastolic 36–64; PULSE 67–75; RESP 11–20; TEMP 97.8–98.8; O2SAT 94–100
[2024-12-28] MEDS: VANCOMYCIN 1.5GM/250ML 250 ML IV SCH (02:41)
[2024-12-28] MEDS: CLINDAMYCIN 600MG IV 50 ML IV SCH (02:41)
[2024-12-28 06:16] LABS: Hemoglobin 13.0 g/dL (13.5-17.5); Nucleated Red Blood Cells % 0.0 %
[2024-12-28 06:18] LABS: Hematocrit 36.2 % (41.0-53.0); Mean Corpuscular Hemoglobin 36.2 pg (28.0-32.0); Mean Corpuscular Volume 100.5 fL (80.0-100.0)
[2024-12-28 06:28] LABS: Albumin 3.7 g/dL (3.2-4.8); Alkaline Phosphatase 90 U/L (46-116); Anion Gap 8 (5-15); BUN/Creatinine Ratio 11.7 (10.0-20.0); Blood Urea Nitrogen 9 mg/dL (9-23); Calcium 8.7 mg/dL (8.7-10.4); Carbon Dioxide 27 mmol/L (20-31); Potassium 3.7 mmol/L (3.5-5.1); Total Protein 6.6 g/dL (5.7-8.2)
[2024-12-28 06:29] LABS: Bilirubin, Total 0.4 mg/dL (0.2-1.0)
[2024-12-28 06:36] LABS: Alanine Aminotransferase 77 U/L (7-40); Chloride 98 mmol/L (98-107); Glucose 150 mg/dL (74-106); Sodium 133 mmol/L (136-145)
[2024-12-28] MEDS: LEVOTHYROXINE SODIUM 25 MCG TAB PO SCH (06:38)
[2024-12-28] MEDS: ENOXAPARIN SOD 40 MG/0.4 ML SYRINGE SC SCH (10:00)
--- NOTE | 2024-12-28 10:05 | DVHINCON2 ---
Date of service: Dec 28, 2024 History of Present Illness 59-year-old male with diabetes status post fall to his gluteal region resulting in an infection that is now spontaneously draining. Patient denies any fevers or chills. Past Medical History Diabetes. Diabetic neuropathy. Past Surgical History Bilateral metatarsal amputations. Hernia surgery. Family History: Patient reports no known family medical history. Family History Noncontributory Social History Occasional alcohol. Smokes one pack a day for past 50 years. History of methamphetamine use but quit 25 years ago. Allergies: Coded Allergies: NO KNOWN ALLERGIES (Unverified , 12/15/21) Home Meds Active Scripts Prednisone (Prednisone) 20 Mg Tab, 20 MG PO BID for 5 Days, #10 TAB Prov:JAQUELINE BEY MD 12/17/21 Amoxicillin & Pot Clavulanate (Augmentin) 500 Mg Tab, 1 TAB PO BID, #14 TAB Prov:JAQUELINE BEY MD 12/17/21 Reported Medications Atorvastatin Calcium (ATORVASTATIN CALCIUM) 40 Mg Tab, 1 TAB PO QPM, #90 TAB 3 Refills 12/16/21 Levothyroxine Sodium (Levothyroxine Sodium) 88 Mcg Tab, 75 MCG PO QAM for 30 Days, MCG 12/16/21 Metformin Hydrochloride (Metformin Hcl) 1,000 Mg Tab, 1 TAB PO BID, #60 TAB 5 Refills 12/16/21 Glipizide (Glipizide) 10 Mg Tab, 10 MG PO DAILY for 30 Days, MG 12/16/21 Current Medications Current Medications Medications (Trade) Dose Ordered Sig/Yuliya Route PRN Reason Start Time Stop Time Status Last Admin Sodium Chloride (Saline Lock Ns) 10 ml Q8HR IV 12/27/24 22:00 12/28/24 05:32 Sodium Chloride 1,000 ml @ 120 mls/hr Q8H20M IV 12/27/24 15:45 12/28/24 00:05 Acetaminophen (Tylenol Tablet) 325 mg Q4HP PRN PO MILD PAIN (1-3 PAIN SCALE) 12/27/24 15:45 Ondansetron HCl (Zofran) 4 mg Q4HP PRN IV NAUSEA / VOMITING 12/27/24 15:45 Enoxaparin Sodium (Lovenox) 40 mg DAILY SC 12/28/24 10:00 Morphine Sulfate 2 mg Q4HPRN PRN IV SEVERE PAIN (7-10 PAIN SCALE) 12/27/24 15:45 12/27/24 22:27 Diagnostic Test (Pha) (Accu-Chek Comfort Curve T) 1 strip ACHS 12/27/24 17:00 12/28/24 06:38 Insulin Human Regular (InsuLIN R) ACHS SC 12/27/24 17:00 12/28/24 06:47 Dextrose 50 ml UD PRN IV Blood Sugar LESS THAN 60 12/27/24 15:45 Cefepime HCl 50 ml @ 12.5 mls/hr Q8HR IV 12/27/24 22:00 12/28/24 05:32 Vancomycin HCl 0 ml @ 0 mls/hr UD IV 12/27/24 15:45 Levothyroxine Sodium (Synthroid Tablet) 75 mcg QAM PO 12/28/24 07:00 12/28/24 06:38 Atorvastatin Calcium (Lipitor) 40 mg HS PO 12/27/24 22:00 12/27/24 21:39 Clindamycin Phosphate 50 ml @ 50 mls/hr Q8H IV 12/28/24 02:00 12/28/24 09:34 Vancomycin HCl 250 ml @ 166.667 mls/hr Q12H IV 12/28/24 02:00 12/28/24 02:41 Vital Signs Vital Signs Date Time Temp Pulse Resp B/P (MAP) Pulse Ox O2 Delivery O2 Flow Rate FiO2 12/28/24 05:00 98.7 75 20 121/63 (82) 98 98.7 12/27/24 21:36 Room Air* 0 21 Physical Exam GEN: Disheveled appearing male in no acute distress. Alert. HEENT: Normocephalic atraumatic. Moist mucous membranes. Anicteric sclerae. CV: RRR Respiratory: CTAB ABD: Soft. Nontender nondistended Gluteal: There is a small skin opening in the right gluteal region just lateral to the intergluteal cleft with foul-smelling drainage. CT of the abdomen and pelvis: Significant abnormal air-fluid collection along the left medial inferior buttock extending towards the rectum measuring 8 x 5.4 cm with a edema extending superiorly along the ischioanal fossa with inflammatory stranding along the intergluteal cleft Labs/Diagnostic Data Labs Test 12/28/24 06:40 12/28/24 05:30 12/27/24 16:10 12/27/24 15:41 Range/Units POC Glucose 158 H 70-106 mg/dl White Blood Count 8.9 4.4-10.8 10^3/uL Red Blood Count 3.60 L 4.5-5.90 10^6/uL Hemoglobin 13.0 L 13.5-17.5 g/dL Hematocrit 36.2 L 41.0-53.0 % Mean Corpuscular Volume 100.5 H 80.0-100.0 fL Mean Corpuscular Hemoglobin 36.2 H 28.0-32.0 pg Mean Corpuscular Hemoglobin Concent 36.0 32.0-36.0 g/dL Red Cell Distribution Width 13.6 11.8-14.3 % Platelet Count 223 140-450 10^3/uL Mean Platelet Volume 7.4 6.9-10.8 fL Neutrophils (%) (Auto) 71.3 37.0-80.0 % Lymphocytes (%) (Auto) 16.4 10.0-50.0 % Monocytes (%) (Auto) 10.8 0.0-12.0 % Eosinophils (%) (Auto) 1.1 0.0-7.0 % Basophils (%) (Auto) 0.4 0.0-2.0 % Neutrophils # (Auto) 6.3 1.6-8.6 10 ^3/uL Lymphocytes # (Auto) 1.5 0.4-5.4 10 ^3/uL Monocytes # (Auto) 1.0 0-1.3 10 ^3/uL Eosinophils # (Auto) 0.1 0-0.8 10 ^3/uL Basophils # (Auto) 0 0-0.2 10 ^3/uL Nucleated Red Blood Cells 0.0 % Sodium Level 133 L 136-145 mmol/L Potassium Level 3.7 3.5-5.1 mmol/L Chloride Level 98 98-107 mmol/L Carbon Dioxide Level 27 20-31 mmol/L Anion Gap 8 5-15 Blood Urea Nitrogen 9 9-23 mg/dL Creatinine 0.77 0.700-1.30 mg/dL Glomerular Filtration Rate Calc 102 >90 mL/min BUN/Creatinine Ratio 11.7 10.0-20.0 Serum Glucose 150 H 74-106 mg/dL Calcium Level 8.7 8.7-10.4 mg/dL Total Bilirubin 0.4 0.2-1.0 mg/dL Aspartate Amino Transferase (AST) 82 H 13-40 U/L Alanine Aminotransferase (ALT) 77 H 7-40 U/L Alkaline Phosphatase 90 46-116 U/L Total Protein 6.6 5.7-8.2 g/dL Albumin 3.7 3.2-4.8 g/dL Urine Color Yellow Yellow Urine Clarity Clear Clear Urine pH 6.0 5.0-9.0 Urine Specific [place] 1.019 1.001-1.035 Urine Protein Trace H Negative Urine Ketones Negative Negative Urine Blood Negative Negative /uL Urine Nitrite Negative Negative Urine Bilirubin Negative Negative Urine Urobilinogen 3 H Negative mg/dL Urine Leukocyte Esterase Negative Negative /uL Urine RBC 1 0 - 3 /hpf Urine Microscopic WBC 2 0-3 /HPF Urine Squamous Epithelial Cells Few <5 /hpf Urine Bacteria None seen None Seen /hpf Urine Mucus Few None Seen Urine Glucose Normal Normal mg/dL Urine Opiates Screen Neg NEGATIVE Urine Fentanyl Screen Neg NEGATIVE Urine Barbiturates Screen Neg NEGATIVE Urine Phencyclidine Screen Neg NEGATIVE Urine Amphetamines Screen Pos NEGATIVE Urine Benzodiazepines Screen Neg NEGATIVE Urine Cocaine Screen Neg NEGATIVE Urine Cannabinoids Screen Pos NEGATIVE Lactic Acid Level 1.4 0.4-2.0 mmol/L Test 12/27/24 13:25 Range/Units Prothrombin Time 12.3 H 9.3-11.8 sec Prothrombin Time INR 1.18 H 0.9-1.15 Activated Partial Thromboplast Time 29.2 24.5-34.5 SEC Hemoglobin A1c 8.6 H <5.7 % A1C Triglycerides Level 233 H < 150 mg/dL Cholesterol Level 147 < 200 mg/dL LDL Cholesterol 90 < 100 mg/dL HDL Cholesterol 16 L 40-59 mg/dL Thyroid Stimulating Hormone (TSH) 26.78 H 0.55-4.78 uIU/mL HIV (1&2) Antibody Negative Negative Assessment 1. Right gluteal/rectal abscess Plan/Recommendation 1. Incision drainage of right rectal abscess Informed consent: The surgery and its risks including but not limited to infec tion, bleeding, possible future development of anal fistula, possible perioperative [place] or stroke were explained to the patient. All questions were answered to his satisfaction. He expressed verbal understanding and wished to proceed with the surgery. Plan discussed with: Patient MOJGAN BLAKE MD Dec 28, 2024 10:05
--- NOTE | 2024-12-28 13:44 | DVHPNRES ---
Progress Note Date Seen: Dec 28, 2024 Resident Creating Document: PAUL BOYCE RESIDENT Medical Necessity Reason Pt with a Central, PICC or Fol: No Subjective Review of Systems This is a 59-year-old male who came into the ED via EMS with a chief complain of wound in the right gluteal area. PMH: Type 2 diabetes, diabetic neuropathy. PSH: Bilateral metatarsal amputation, hernia surgery. SH: Drinks alcohol occasionally, smokes tobacco since 50 years ago one pack per day. States having done meth for 14 years, quit 25 years ago. Patient states that he has a fall from the toilet three days ago, due to his bilateral metatarsal amputation he sometimes has trouble walking, he misstepped and fell on his buttock area did not hit his head and did not lose consciousness. He states having significant pain and bleeding from the area. For the next couple of days he started experiencing chills, fevers, fatigue, diaphoresis, general malaise. He denies any chest pain, shortness of breath, abdominal pain, nausea, vomiting, urinary symptoms, diarrhea. He denies any recent sick contacts. On arrival to the ED, patient was given 2 L IV fluids, he was started on cefepime and vancomycin. Insulin IV was given. He was noted to have hyperglycemia, lactic acidosis. Patient was seen and examined at bedside, he stated having mild-moderate pain on the left gluteal and perianal area. He denied any other symptoms. Objective vital signs Vital Sign Date Time Temp Pulse Resp B/P (MAP) Pulse Ox O2 Delivery O2 Flow Rate FiO2 12/28/24 09:00 98.4 69 20 105/56 (72) 95 98.4 12/28/24 08:00 Room Air* 0 21 Total Intake and Output 12/27/24 12/27/24 12/28/24 15:00 23:00 07:00 Intake Total 250 ml 1290.0 ml 400 ml Balance 250 ml 1290.0 ml 400 ml medications Current Medications Medications Dose Ordered Sig/Yuliya Route Start Time Stop Time Status Last Admin Dose Admin Sodium Chloride 10 ml Q8HR IV 12/27/24 22:00 12/28/24 13:00 10 ML Sodium Chloride 1,000 ml @ 120 mls/hr Q8H20M IV 12/27/24 15:45 12/28/24 00:05 120 MLS/HR Acetaminophen 325 mg Q4HP PRN PO 12/27/24 15:45 Ondansetron HCl 4 mg Q4HP PRN IV 12/27/24 15:45 Enoxaparin Sodium 40 mg DAILY SC 12/28/24 10:00 Morphine Sulfate 2 mg Q4HPRN PRN IV 12/27/24 15:45 12/27/24 22:27 2 MG Diagnostic Test (Pha) 1 strip ACHS 12/27/24 17:00 12/28/24 11:34 1 STRIP Insulin Human Regular ACHS SC 12/27/24 17:00 12/28/24 11:36 4 UNITS Dextrose 50 ml UD PRN IV 12/27/24 15:45 Cefepime HCl 50 ml @ 12.5 mls/hr Q8HR IV 12/27/24 22:00 12/28/24 05:32 12.5 MLS/HR Vancomycin HCl 0 ml @ 0 mls/hr UD IV 12/27/24 15:45 Levothyroxine Sodium 75 mcg QAM PO 12/28/24 07:00 12/28/24 06:38 75 MCG Atorvastatin Calcium 40 mg HS PO 12/27/24 22:00 12/27/24 21:39 40 MG Clindamycin Phosphate 50 ml @ 50 mls/hr Q8H IV 12/28/24 02:00 12/28/24 09:34 50 MLS/HR Vancomycin HCl 250 ml @ 166.667 mls/hr Q12H IV 12/28/24 02:00 12/28/24 13:00 166.667 MLS/HR Examination Physical examination as below: General: Awake, alert, in no acute distress. HEENT: Head is normocephalic and atraumatic. Pupils are equal, round, and reactive to light. Extraocular muscles are intact. No nasal discharge. No facial trauma. Neck: Supple with no cervical lymphadenopathy. Heart: Regular rate without murmur, rub, or gallop. Lungs: Equal breath sounds bilaterally with no wheezing, rales, or rhonchi. There is no chest wall tenderness or instability. Abdomen:Bowel sounds are present. Abdomen is soft, nontender. No rebound, no guarding, no rigidity. There are no palpable masses. There is no flank pain on exam. Old Surgical scar on periumbilical area, no signs of infection. Extremities: Peripheral pulses present. No cyanosis, and no edema. Bilateral transmetatarsal amputation Skin: Right lower gluteal area erythematous, with tenderness to palpation, with a small we will ulcer wound draining yellow whitish fluid foul odor, area of fluctuance. On perianal area there is skin colored, fleshy, cauliflower-like growths extending up to the genital area. Neurologic: Cranial nerves II-XII intact without motor, sensory, or cerebellar deficit, no asterixis. Physical examination was performed with litharge supervisor present. laboratory and microbiology Laboratory Tests 12/28/24 05:30 Test 12/28/24 05:30 Range/Units Serum Glucose 150 H 74-106 mg/dL Microbiology Date/Time Source Procedure Growth Status 12/27/24 16:10 Voided Urine Urine Culture - Preliminary Resulted 12/27/24 13:25 Blood Blood Culture - Preliminary NO GROWTH AFTER 24 HOURS OF INCUBATION. Resulted Labs and/or images reviewed: Labs reviewed by me, Image(s) reviewed by me Problem List/Assessment/Plan Problem List/Assessment/Plan #Left Gluteal abscess, rule out rectal fistula #Lactic acidosis #Anal condyloma acuminatum IV fluid bolus given Continue 120 mL per hour of normal saline Cefepime IV Vancomycin IV Clindamycin IV Lactic acid normal, blood culture no growth, urinalysis no UTI, HIV negative, hepatitis panel is pending, MRSA screen pending, UDS (+) meth and cannabis Wound consult, wound culture pending CT abdomen and pelvis: Significant abnormal air-fluid collection located along the left medial inferior buttock extending towards the rectum measuring 8 x 5.4 cm. Edema extending superiorly along the ischioanal fossa. Significant abnormal inflammatory stranding propagating along the intergluteal cleft and asymmetric thickening possibly of the left external sphincter of the anal verge. Overall appearance superior rectal abscess however correlate for sequelae of sacral decubitus ulcer. Surgical consult, pending I&D #Transaminitis #Fatty liver Order liver ultrasound, showed likely liver steatosis #Type 2 diabetes with hyperglycemia, uncontrolled #Bilateral transmetatarsal amputations SSI mild Ordered A1c, came 8.6% #Obesity #Mixed Dyslipidemia Lipitor 40 mg p.o. q.d. #Hypothyroidism Levothyroxine 75 mcg q.d. Order TSH, came high, ordered T3, T4 pending #Methamphetamine abuse #Cannabis dependence #Tobacco dependence Elevator Service Technician on lifestyle modifications DVT prophylaxis: Lovenox Case was discussed with Dr. Lo Plan discussed with: Patient, Other (RN) My Orders My Orders Orders - PAUL BOYCE RESIDENT Procedure Category Date Status Time Admit ADMIT 12/27/24 Transmitted 15:40 Allergies ORIN 12/27/24 In Process 15:40 Code Status CODE 12/27/24 Transmitted 15:40 Sodium Chloride Lock PHA 12/27/24 In Process (Saline Lock Ns) 22:00 Sodium Chloride 0.9% PHA 12/27/24 In Process 15:45 Acetaminophen Tablet PHA 12/27/24 In Process (Tylenol Tablet) 15:45 Ondansetron Hcl PHA 12/27/24 In Process (Zofran) 15:45 Enoxaparin Sodium PHA 12/28/24 In Process (Lovenox) 10:00 Condition: Fair ORIN 12/27/24 In Process 15:40 Morphine Sulfate PHA 12/27/24 In Process Injection 15:45 Notify Of Changes ORIN 12/27/24 In Process From Base 15:40 Glucose Blood PHA 12/27/24 In Process (Accu-Chek Comfort 17:00 Insulin R (Human) PHA 12/27/24 In Process (Insulin R) 17:00 Dextrose 50% Syringe PHA 12/27/24 In Process 15:45 Urine Bacterial STEFF 12/27/24 In Process Culture 15:40 LIVER US 12/27/24 Resulted 15:40 Cefepime 1gm/50ml PHA 12/27/24 In Process (Maxipime 1gm/50ml) 22:00 Vancomycin Per PHA 12/27/24 In Process Pharmacy 15:45 Mrsa Screen STEFF 12/27/24 Logged 15:40 Acute Hepatitis Panel LAB 12/27/24 In Process 16:13 Hepatitis C Antibody LAB 12/27/24 In Process 16:13 * Wound Consult CONS 12/27/24 Transmitted Wound Culture W/ Gs STEFF 12/27/24 Logged 16:13 Atorvastatin (Lipitor) PHA 12/27/24 In Process 22:00 Levothyroxine Tablet PHA 12/28/24 In Process (Synthroid Tablet) 07:00 * Surgical Consult CONS 12/27/24 Transmitted Clindamycin 600mg Iv PHA 12/28/24 In Process (Cleocin Iv) 02:00 Vancomycin PHA 12/28/24 In Process 1.5gm/250ml 02:00 Vancomycin Per ORIN 12/29/24 In Process Pharmacy Protoc 14:00 Vancomycin,Trough LAB 12/29/24 Verified 13:00 Npo (Nothing By DIET 12/28/24 Transmitted Mouth) Diet Lunch Dietary Evaluation Review Recommendations by RD: Dietary education by RD, Protein Supplementation Comments: 1) Initiate Jose @ 1 pk bid 2) Initaite vitamin C @ 500 mg bid and zinc sulfate @ 220 mg for 7-10 days 3) Initaite MVI @ 1 tb qd 4) Advance to 45g CCHO cardiac diet when medically feasible 5) Encourage patient to limit intake of added sugar including sugar-sweetened beverages, desserts, candy, etc. Aim for a consistent intake of complex carbohydrates throughout the day, paired with protein to promote glycemic control 6) Refer to outpatient RD/CD[facility] for ongoing diabetes education and weight management 7) Follow-up with social organization professor r/t polysubstance abuse 8) Continue to monitor I&O, labs, and skin integrity Expected Outcomes/Goals: 1) diet to advance 2) labs and wounds to improve 3) gradual wt loss 4) f/u in 3-5 days Date of Service: Dec 28, 2024 Billing Provider: ALLA LO MD Common Visit Codes: 51820-[id number] INP/OBS CARE(HIGH) Addendum Addendum Addendum I was physically present for the henning portions of the service provided to patient by THE RESIDENT. I have reviewed the documentation, discussed the case with resident and agree with the resident's documentation except as noted. Also the patient's clinical case was discussed with the patient's nurse. This medical document was created using an electronic medical record system with computerized dictation system. Although this document has been carefully reviewed, there might still be some phonetic and typographical errors. These areas are purely typographical due to imperfections of the software programs, and do not reflect any compromise in the patient's medical care. Late signature. PAUL BOYCE RESIDENT Dec 28, 2024 13:44 ALLA LO MD Dec 30, 2024 11:43
[2024-12-28] MEDS ORDERED: fentaNYL CITRATE 100 MCG/2 ML VL ONE (16:00)
[2024-12-28] MEDS ORDERED: KETAMINE 50mg/ML 10ml Vial 10 ML ONE (16:00)
[2024-12-28] MEDS: ceFAZolin 1GM/50ML 50 ML IV ONE (16:00)
[2024-12-28] MEDS: ceFAZolin 2 GM/D5W50ml 50 ML IV ONE (16:15)
[2024-12-28] MEDS ORDERED: PROPOFOL 10 MG/ML 20 ML IV ONE (16:39)
--- NOTE | 2024-12-28 16:46 | DVHOP2 ---
Operative Report - 2 Report Details Date: 12/28/24 Preop Diagnosis: Left perirectal abscess Postop Diagnosis: Same Surgeon: Mojgan Lewis MD Drier Operator Helper: None Anesthesiologist: Reinaldo Overton CRNA Anesthesia: General, Local Drains: Quarter-inch Jasbir drain Consent: The surgery and its risks including but not limited to infection, bleeding, possible future development of anal fistula, possible perioperative [place] or stroke were explained to the patient. All questions were answered to his satisfaction. He expressed verbal understanding and wished to proceed with the surgery. Complications: None Estimated Blood Loss: 10 mL Fluids: 500 mL Name of Procedure Performed Incision and drainage of left perirectal abscess Procedure Details Procedure Details: After induction of general anesthesia, patient was placed in a high lithotomy position and his anal region was prepped and draped in standard surgical fashion. Patient already had a small skin opening in the left perianal region that was spontaneously draining with some purulent fluid. Proximally 20 mL of 1% lidocaine with epinephrine was used as local anesthesia. This was gently explored revealing a large left perirectal abscess cavity. The abscess cavity was swabbed for Gram stain and culture. The cavity extended more anteriorly and so a quarter-inch counter incision was made more anteriorly to completely drain the entire abscess cavity. These two incisions were kept open using quarter- inch [place] drain. The anal sphincter was preserved. The abscess cavity was then well irrigated with diluted Betadine irrigation and packed with quarter- inch iodoform packing strips. Surgical site was cleaned and dried and dressings were applied. The sponge, needle, instrument count at the end of the case were reported to be correct by the nursing staff. The patient tolerated procedure well and was awakened, extubated and transferred to recovery in stable condition. Specimen: Gram stain and culture from the left perirectal abscess Condition Stable Disposition Still a Patient MOJGAN LEWIS MD Dec 28, 2024 16:46
[2024-12-28] MEDS: LIDOCAINE W/ EPINEPHRINE 1% 20ML VIAL ONE (17:07)
[2024-12-29] VITALS (7 sets, daily range): BP systolic 101–134; BP diastolic 50–65; PULSE 57–64; RESP 18–20; TEMP 97–98.1; O2SAT 96–98
[2024-12-29] MEDS: CLINDAMYCIN 600MG IV 50 ML IV SCH (04:30)
[2024-12-29] MEDS: CEFEPIME 1GM/50ML 50 ML IV SCH (06:10)
[2024-12-29 07:41] LABS: Mean Corpuscular Volume 101.9 fL (80.0-100.0)
[2024-12-29 07:45] LABS: Hematocrit 34.6 % (41.0-53.0); Hemoglobin 12.2 g/dL (13.5-17.5); Mean Corpuscular Hemoglobin 36.0 pg (28.0-32.0); Nucleated Red Blood Cells % 0.2 %
[2024-12-29 09:33] LABS: Chloride 101 mmol/L (98-107); Potassium 4.0 mmol/L (3.5-5.1)
[2024-12-29 09:34] LABS: Anion Gap 6 (5-15); Carbon Dioxide 29 mmol/L (20-31)
[2024-12-29 09:39] LABS: BUN/Creatinine Ratio 13.2 (10.0-20.0); Blood Urea Nitrogen 10 mg/dL (9-23)
[2024-12-29 09:48] LABS: Calcium 8.4 mg/dL (8.7-10.4); Glucose 184 mg/dL (74-106); Sodium 136 mmol/L (136-145)
[2024-12-29] MEDS: LEVOTHYROXINE SODIUM 25 MCG TAB PO ONE (11:00)
[2024-12-29] MEDS: INSULIN LANTUS (GLARGINE) 1 /0.01ml (100units/ml) SC ONE (11:00)
[2024-12-29] MEDS ORDERED: ACETAMINOPHEN 325 MG TAB PO PRN (11:45)
--- NOTE | 2024-12-29 13:22 | DVH ---
EXAM: CT CT R FOOT WO CONTRAST INDICATION: uncontrolled T2DM, osteomyelitis TECHNIQUE: Axial images of right foot without contrast have been obtained along with coronal and sagi ttal reformatted images. All CT scans at this facility use dose modulation, iterative reconstruction, and/or weight based dosing when appropriate to reduce radiation dose to as low as reasonably achieva ble. COMPARISON: None FINDINGS: BONES: No CT evidence of an acute fracture or aggressive osseous lesion.status post prior transmetata rsal amputation. Significant hypertrophic presumed Charcot arthropathy and/or sequelae of prior trau ma prominent areas of heterotopic calcification inferior to the lateral malleolus and of the posterio r subtalar recess. Extensive areas of subchondral cystic change throughout the visualized articulatio ns. No abnormal osseous erosion, lucency, sclerosis to suggest osteomyelitis. Small plantar calcaneal spur. MUSCLES: Severe fatty atrophy of the intrinsic musculature JOINT SPACES: No joint effusion. OTHER: None. IMPRESSION: 1. No CT evidence of osteomyelitis. Severe degenerative change of the subtalar joint with likely late ral hindfoot ankle impingement. 2. Sequelae of hypertrophic likely Charcot arthropathy with prominent areas of heterotopic ossificati on most significant of the medial talus and inferior to lateral malleolus. Likely contributing to oss eous protrusion of the lateral aspect of the ankle.
[2024-12-29] MEDS ORDERED: METOCLOPRAMIDE HCL 5MG/ml INJ 2ml VIAL IV ONE (14:34)
--- NOTE | 2024-12-29 14:41 | DVHPN2 ---
Progress Note - Dictate Date Seen: Dec 29, 2024 Medical Necessity Reason Pt with a Central, PICC or Fol: No Subjective E: no major events o/n. doing ok. vital signs Vital Sign Date Time Temp Pulse Resp B/P (MAP) Pulse Ox O2 Delivery O2 Flow Rate FiO2 12/29/24 10:01 59 16 104/64 12/29/24 09:00 97.0 97 97.0 12/28/24 20:00 Room Air* 0 21 Total Intake and Output 12/28/24 12/28/24 12/29/24 15:00 23:00 07:00 Intake Total 350 ml 300 ml 1050 ml Output Total 400 ml 400 ml Balance 350 ml -100 ml 650 ml medications Current Medications Medications Dose Ordered Sig/Yuliya Route Start Time Stop Time Status Last Admin Dose Admin Sodium Chloride 10 ml Q8HR IV 12/27/24 22:00 12/29/24 13:01 10 ML Ondansetron HCl 4 mg Q4HP PRN IV 12/27/24 15:45 Enoxaparin Sodium 40 mg DAILY SC 12/28/24 10:00 12/29/24 09:55 40 MG Morphine Sulfate 2 mg Q4HPRN PRN IV 12/27/24 15:45 12/29/24 10:01 2 MG Vancomycin HCl 0 ml @ 0 mls/hr UD IV 12/27/24 15:45 Atorvastatin Calcium 40 mg HS PO 12/27/24 22:00 12/28/24 21:06 40 MG Vancomycin HCl 250 ml @ 166.667 mls/hr Q12H IV 12/28/24 02:00 12/29/24 01:57 166.667 MLS/HR Cefepime HCl 50 ml @ 12.5 mls/hr Q8H IV 12/29/24 05:00 12/29/24 13:00 12.5 MLS/HR Clindamycin Phosphate 50 ml @ 50 mls/hr Q8H IV 12/29/24 05:30 12/29/24 13:00 50 MLS/HR Acetaminophen 650 mg Q4HP PRN PO 12/29/24 11:45 Levothyroxine Sodium 150 mcg QAM@0600 PO 12/30/24 06:00 Insulin Glargine 25 units HS SC 12/29/24 22:00 objective GEN: NAD GLUTEAL: boaz drain intact. min serosang drainage. pulled out packing. laboratory and microbiology Laboratory Tests 12/29/24 08:50 12/29/24 05:53 Test 12/29/24 08:50 Range/Units Serum Glucose 184 H 74-106 mg/dL Assessment/Plan A: 1. s/p I+D left perirectal abscess POD #1 doing well. P: 1. keep surgical area clean by washing 2-3 times a day with soap and water 2. stable from surgery POV for DC home with oral abx for next 3-5 days (augmentin or cipro+flagyl) 3. f/u in my clinic in 2 weeks. call [phone] for f/u appt. Dietary Evaluation Review Recommendations by RD: Dietary education by RD, Protein Supplementation Comments: 1) Initiate Jsoe @ 1 pk bid 2) Initaite vitamin C @ 500 mg bid and zinc sulfate @ 220 mg for 7-10 days 3) Initaite MVI @ 1 tb qd 4) Advance to 45g CCHO cardiac diet when medically feasible 5) Encourage patient to limit intake of added sugar including sugar-sweetened beverages, desserts, candy, etc. Aim for a consistent intake of complex carbohydrates throughout the day, paired with protein to promote glycemic control 6) Refer to outpatient RD/CD[facility] for ongoing diabetes education and weight management 7) Follow-up with social work program coordinator r/t polysubstance abuse 8) Continue to monitor I&O, labs, and skin integrity Expected Outcomes/Goals: 1) diet to advance 2) labs and wounds to improve 3) gradual wt loss 4) f/u in 3-5 days Plan discussed with: Patient MOJGAN BLAKE MD Dec 29, 2024 14:40
[2024-12-29] MEDS ORDERED: DEXTROSE (50%) 50ML SYRG IV PRN (16:15)
--- NOTE | 2024-12-29 16:19 | DVHPNRES ---
Progress Note Date Seen: Dec 29, 2024 Resident Creating Document: ANIKET DE LA ROSA RESIDENT Medical Necessity Reason Pt with a Central, PICC or Fol: No Subjective Review of Systems This is a 59-year-old male who came into the ED via EMS with a chief complain of wound in the right gluteal area. Patient states that he has a fall from the toilet three days ago, due to his bilateral metatarsal amputation he sometimes has trouble walking, he misstepped and fell on his buttock area did not hit his head and did not lose consciousness. He states having significant pain and bleeding from the area. For the next couple of days he started experiencing chills, fevers, fatigue, diaphoresis, general malaise. He denies any chest pain, shortness of breath, abdominal pain, nausea, vomiting, urinary symptoms, diarrhea. He denies any recent sick contacts. PMH: Type 2 diabetes, diabetic neuropathy. PSH: Bilateral metatarsal amputation, hernia surgery. SH: Drinks alcohol occasionally, smokes tobacco since 50 years ago one pack per day. States having done meth for 14 years, quit 25 years ago. Review of systems Patient seen and examined with the bedside. Reports of [id number] pain in the gluteal area which is improved since yesterday. Denies abdominal pain, constipation or diarrhea. Wound culture sent from the right foot and foot CT ordered Objective vital signs Vital Sign Date Time Temp Pulse Resp B/P (MAP) Pulse Ox O2 Delivery O2 Flow Rate FiO2 12/29/24 10:31 60 15 110/60 12/29/24 09:00 97.0 97 97.0 12/29/24 08:00 Room Air* 0 21 Total Intake and Output 12/28/24 12/28/24 12/29/24 15:00 23:00 07:00 Intake Total 350 ml 300 ml 1050 ml Output Total 400 ml 400 ml Balance 350 ml -100 ml 650 ml medications Current Medications Medications Dose Ordered Sig/Yuliya Route Start Time Stop Time Status Last Admin Dose Admin Sodium Chloride 10 ml Q8HR IV 12/27/24 22:00 12/29/24 13:01 10 ML Ondansetron HCl 4 mg Q4HP PRN IV 12/27/24 15:45 Enoxaparin Sodium 40 mg DAILY SC 12/28/24 10:00 12/29/24 09:55 40 MG Morphine Sulfate 2 mg Q4HPRN PRN IV 12/27/24 15:45 12/29/24 10:01 2 MG Vancomycin HCl 0 ml @ 0 mls/hr UD IV 12/27/24 15:45 Atorvastatin Calcium 40 mg HS PO 12/27/24 22:00 12/28/24 21:06 40 MG Vancomycin HCl 250 ml @ 166.667 mls/hr Q12H IV 12/28/24 02:00 12/29/24 01:57 166.667 MLS/HR Cefepime HCl 50 ml @ 12.5 mls/hr Q8H IV 12/29/24 05:00 12/29/24 13:00 12.5 MLS/HR Clindamycin Phosphate 50 ml @ 50 mls/hr Q8H IV 12/29/24 05:30 12/29/24 13:00 50 MLS/HR Acetaminophen 650 mg Q4HP PRN PO 12/29/24 11:45 Levothyroxine Sodium 150 mcg QAM@0600 PO 12/30/24 06:00 Insulin Glargine 25 units HS SC 12/29/24 22:00 Diagnostic Test (Pha) 1 strip ACHS 12/29/24 17:00 UNV Insulin Human Regular HS SC 12/29/24 22:00 UNV Insulin Human Regular AC SC 12/29/24 17:00 UNV Dextrose 50 ml UD PRN IV 12/29/24 16:15 UNV Examination Gen - no pallor, no icterus, no cyanosis, no clubbing, no peripheral edema . Skin - Patients skin is warm and dry. HEENT - normocephalic, atraumatic, moist mucous membranes. Neck - full ROM, no LAD, no JVD Pulmonary - B/L equal breath sounds, no crackles, no wheezing, no stridor. cardiovascular - regular S1,S2 heard, no added sounds, no murmurs heard. GI - soft, nontender abdomen. no hepatosplenomegaly. Bowel sounds normoactive Neurological - Patient is A/O X 3. Bilateral upper extremity strength 5/5, bilateral lower extremity strength 5/5, no facial droop, normal speech, no tremor, no sensory deficiets. Gluteal area: Status post surgical drainage of the abscess with drain in-situ having serosanguineous drainage. On perianal area there is skin colored, fleshy, cauliflower-like growths extending up to the genital area. Extremities: Bilateral feet amputation at metatarsals laboratory and microbiology Laboratory Tests 12/29/24 08:50 12/29/24 05:53 Test 12/29/24 08:50 Range/Units Serum Glucose 184 H 74-106 mg/dL Microbiology Date/Time Source Procedure Growth Status 12/27/24 16:10 Voided Urine Urine Culture - Preliminary Resulted 12/27/24 13:25 Blood Blood Culture - Preliminary NO GROWTH AFTER 48 HOURS OF INCUBATION. Resulted Labs and/or images reviewed: Labs reviewed by me, Image(s) reviewed by me Problem List/Assessment/Plan Problem List/Assessment/Plan #Left Gluteal abscess s/p incision and drainage on December 28, 2024 #Anal condyloma acuminatum CT abdomen and pelvis: Significant abnormal air-fluid collection located along the left medial inferior buttock extending towards the rectum measuring 8 x 5.4 cm. Edema extending superiorly along the ischioanal fossa. Significant abnormal inflammatory stranding propagating along the intergluteal cleft and asymmetric thickening possibly of the left external sphincter of the anal verge. Overall appearance superior rectal abscess however correlate for sequelae of sacral decubitus ulcer. Cefepime IV Vancomycin IV Clindamycin IV blood culture show no growth,HIV negative, hepatitis panel is pending Wound consult Surgical consult, pending I&D #Transaminitis #Fatty liver liver ultrasound showed likely liver steatosis monitoring liver panel, improving LFTs # Type 2 diabetes with hyperglycemia, uncontrolled # Bilateral transmetatarsal amputations # Right foot ulcer at the amputation stump - A1c 8.6% - Lantus 25 units at night - moderate insulin sliding scale a.c. - wound cultures from his stump sent - foot CT shows no evidence of osteomyelitis #Obesity #Mixed Dyslipidemia On atorvastatin 40 mg HS #Hypothyroidism On levothyroxine 150 mcg daily Elevated TSH, free T4 and total T3 pending #Methamphetamine abuse #Cannabis dependence #Tobacco dependence Student Development Advisor on lifestyle modifications DVT prophylaxis: Lovenox Case was discussed with Dr. Lo Plan discussed with: Patient, Other My Orders My Orders Orders - ANIKET DE LA ROSA RESIDENT Procedure Category Date Status Time Acetaminophen Tablet PHA 12/29/24 In Process (Tylenol Tablet) 11:45 Levothyroxine Tablet PHA 12/30/24 In Process (Synthroid Tablet) 06:00 Ct R Foot Wo Contrast CT 12/29/24 Resulted 10:56 Insulin Lantus PHA 12/29/24 In Process (Glargine) (Lantus) 22:00 Wound Culture W/ Gs STEFF 12/29/24 Logged 10:56 Glucose Blood PHA 12/29/24 Logged (Accu-Chek Comfort 17:00 Insulin R (Human) PHA 12/29/24 Logged (Insulin R) 22:00 Insulin R (Human) PHA 12/29/24 Logged (Insulin R) 17:00 Dextrose 50% Syringe PHA 12/29/24 Logged 16:15 Dietary Evaluation Review Recommendations by RD: Dietary education by RD, Protein Supplementation Comments: 1) Initiate Jose @ 1 pk bid 2) Initaite vitamin C @ 500 mg bid and zinc sulfate @ 220 mg for 7-10 days 3) Initaite MVI @ 1 tb qd 4) Advance to 45g [facility] cardiac diet when medically feasible 5) Encourage patient to limit intake of added sugar including sugar-sweetened beverages, desserts, candy, etc. Aim for a consistent intake of complex carbohydrates throughout the day, paired with protein to promote glycemic control 6) Refer to outpatient RD/CDCES for ongoing diabetes education and weight management 7) Follow-up with high school social studies tutor r/t polysubstance abuse 8) Continue to monitor I&O, labs, and skin integrity Expected Outcomes/Goals: 1) diet to advance 2) labs and wounds to improve 3) gradual wt loss 4) f/u in 3-5 days Addendum Addendum Addendum I was physically present for the henning portions of the service provided to patient by THE RESIDENT. I have reviewed the documentation, discussed the case with resident and agree with the resident's documentation except as noted. Also the patient's clinical case was discussed with the patient's nurse. This medical document was created using an electronic medical record system with computerized dictation system. Although this document has been carefully reviewed, there might still be some phonetic and typographical errors. These areas are purely typographical due to imperfections of the software programs, and do not reflect any compromise in the patient's medical care. Late signature. Date of Service: Dec 29, 2024 Billing Provider: ALLA LO MD Common Visit Codes: [id number] INP/OBS CARE(HIGH) ANIKET DE LA ROSA RESIDENT Dec 29, 2024 16:19 ALLA LO MD Dec 30, 2024 11:47
[2024-12-29] MEDS: ACCU-CHEK COMFORT CURVE STRIP VI SCH (17:00)
[2024-12-29] MEDS: InsuLIN REG 1unit/0.01ml Soln (100units/ml) SC SCH ×2 (17:00→21:31)
[2024-12-29] MEDS: INSULIN LANTUS (GLARGINE) 1 /0.01ml (100units/ml) SC SCH (21:30)
[2024-12-30 01:00] VITALS: BP 112/62; PULSE 63; RESP 20; TEMP 97.8; O2SAT 97
[2024-12-30 05:00] VITALS: BP 136/61; PULSE 61; RESP 18; TEMP 97.9; O2SAT 100
[2024-12-30] MEDS: LEVOTHYROXINE SODIUM 50 MCG TAB PO SCH (05:02)
[2024-12-30 06:14] LABS: Hemoglobin 12.5 g/dL (13.5-17.5); Nucleated Red Blood Cells % 0.1 %
[2024-12-30 06:17] LABS: Hematocrit 35.7 % (41.0-53.0); Mean Corpuscular Hemoglobin 35.8 pg (28.0-32.0); Mean Corpuscular Volume 102.0 fL (80.0-100.0)
[2024-12-30 06:24] LABS: Chloride 105 mmol/L (98-107); Potassium 3.8 mmol/L (3.5-5.1)
[2024-12-30 06:25] LABS: Anion Gap 8 (5-15); Carbon Dioxide 22 mmol/L (20-31)
[2024-12-30 06:27] LABS: Calcium 8.5 mg/dL (8.7-10.4); Sodium 135 mmol/L (136-145)
[2024-12-30 06:30] LABS: BUN/Creatinine Ratio 7.0 (10.0-20.0); Blood Urea Nitrogen 5 mg/dL (9-23); Glucose 130 mg/dL (74-106)
[2024-12-30 07:45] VITALS: O2SAT 98
[2024-12-30 09:00] VITALS: BP 99/64; PULSE 67; RESP 18; TEMP 97.8; O2SAT 95
[2024-12-30 10:25] LABS: Free T4 (Free Thyroxine) 0.83 ng/dL (0.89-1.76)
[2024-12-30 10:28] LABS: Hepatitis B Surface Antigen Negative (Negative); Hepatitis C Antibody Negative (Negative)
[2024-12-30] MEDS: metroNIDAZOLE 500 MG TAB PO SCH (14:21)
[2024-12-30] MEDS ORDERED: AUG875T PO (15:31)
[2024-12-30] MEDS ORDERED: BACDST PO (15:31)
[2024-12-30] MEDS ORDERED: INSU100I54 SC (15:46)
[2024-12-30] MEDS ORDERED: LEVO50TA7 PO (15:46)
[2024-12-30] MEDS ORDERED: ATOR40TA52 PO (15:46)
[2024-12-30] MEDS ORDERED: INSLANTI SC (15:46)
[2024-12-30] MEDS ORDERED: POLY33505 PO (15:47)
[2024-12-30] MEDS ORDERED: DOCU-94 PO (15:47)
--- NOTE | 2024-12-30 16:12 | DVHDSRES ---
Discharge Summary Date of Admission Resident Creating Document: ANIKET DE LA ROSA RESIDENT Dec 27, 2024 at 15:40 Date of Discharge: Dec 30, 2024 Admitting Diagnosis wound in the right gluteal area Labs/Diagnostic Data: Laboratory Results Test 12/30/24 13:30 12/30/24 11:35 12/30/24 05:20 12/28/24 05:30 Vancomycin Level Trough 14.8 ug/mL (5-10) POC Glucose 191 mg/dl (70-106) White Blood Count 5.7 10^3/uL (4.4-10.8) Red Blood Count 3.50 10^6/uL (4.5-5.90) Hemoglobin 12.5 g/dL (13.5-17.5) Hematocrit 35.7 % (41.0-53.0) Mean Corpuscular Volume 102.0 fL (80.0-100.0) Mean Corpuscular Hemoglobin 35.8 pg (28.0-32.0) Mean Corpuscular Hemoglobin Concent 35.1 g/dL (32.0-36.0) Red Cell Distribution Width 13.6 % (11.8-14.3) Platelet Count 222 10^3/uL (140-450) Mean Platelet Volume 7.3 fL (6.9-10.8) Neutrophils (%) (Auto) 55.4 % (37.0-80.0) Lymphocytes (%) (Auto) 30.5 % (10.0-50.0) Monocytes (%) (Auto) 12.0 % (0.0-12.0) Eosinophils (%) (Auto) 1.5 % (0.0-7.0) Basophils (%) (Auto) 0.6 % (0.0-2.0) Neutrophils # (Auto) 3.1 10 ^3/uL (1.6-8.6) Lymphocytes # (Auto) 1.7 10 ^3/uL (0.4-5.4) Monocytes # (Auto) 0.7 10 ^3/uL (0-1.3) Eosinophils # (Auto) 0.1 10 ^3/uL (0-0.8) Basophils # (Auto) 0 10 ^3/uL (0-0.2) Nucleated Red Blood Cells 0.1 % Sodium Level 135 mmol/L (136-145) Potassium Level 3.8 mmol/L (3.5-5.1) Chloride Level 105 mmol/L (98-107) Carbon Dioxide Level 22 mmol/L (20-31) Anion Gap 8 (5-15) Blood Urea Nitrogen 5 mg/dL (9-23) Creatinine 0.71 mg/dL (0.700-1.30) Glomerular Filtration Rate Calc 105 mL/min (>90) BUN/Creatinine Ratio 7.0 (10.0-20.0) Serum Glucose 130 mg/dL (74-106) Calcium Level 8.5 mg/dL (8.7-10.4) Total Bilirubin 0.4 mg/dL (0.2-1.0) Aspartate Amino Transferase (AST) 82 U/L (13-40) Alanine Aminotransferase (ALT) 77 U/L (7-40) Alkaline Phosphatase 90 U/L (46-116) Total Protein 6.6 g/dL (5.7-8.2) Albumin 3.7 g/dL (3.2-4.8) Free Thyroxine (T4) Calculated 0.83 ng/dL (0.89-1.76) Total Triiodothyronine (TT3) 1.07 ng/mL (0.60-1.81) Test 12/27/24 16:10 12/27/24 15:41 12/27/24 13:25 Urine Color Yellow (Yellow) Urine Clarity Clear (Clear) Urine pH 6.0 (5.0-9.0) Urine Specific [place] 1.019 (1.001-1.035) Urine Protein Trace (Negative) Urine Ketones Negative (Negative) Urine Blood Negative /uL (Negative) Urine Nitrite Negative (Negative) Urine Bilirubin Negative (Negative) Urine Urobilinogen 3 mg/dL (Negative) Urine Leukocyte Esterase Negative /uL (Negative) Urine RBC 1 /hpf (0 - 3) Urine Microscopic WBC 2 /HPF (0-3) Urine Squamous Epithelial Cells Few /hpf (<5) Urine Bacteria None seen /hpf (None Seen) Urine Mucus Few (None Seen) Urine Glucose Normal mg/dL (Normal) Urine Opiates Screen Neg (NEGATIVE) Urine Fentanyl Screen Neg (NEGATIVE) Urine Barbiturates Screen Neg (NEGATIVE) Urine Phencyclidine Screen Neg (NEGATIVE) Urine Amphetamines Screen Pos (NEGATIVE) Urine Benzodiazepines Screen Neg (NEGATIVE) Urine Cocaine Screen Neg (NEGATIVE) Urine Cannabinoids Screen Pos (NEGATIVE) Lactic Acid Level 1.4 mmol/L (0.4-2.0) Prothrombin Time 12.3 sec (9.3-11.8) Prothrombin Time INR 1.18 (0.9-1.15) Activated Partial Thromboplast Time 29.2 SEC (24.5-34.5) Hemoglobin A1c 8.6 % A1C (<5.7) Triglycerides Level 233 mg/dL (< 150) Cholesterol Level 147 mg/dL (< 200) LDL Cholesterol 90 mg/dL (< 100) HDL Cholesterol 16 mg/dL (40-59) Thyroid Stimulating Hormone (TSH) 26.78 uIU/mL (0.55-4.78) Hepatitis A IgM Antibody Negative Hepatitis B Surface Antigen Negative (Negative) Hepatitis B Core IgM Antibody Negative (Negative) Hepatitis C Antibody Negative (Negative) HIV (1&2) Antibody Negative (Negative) Other Laboratory Tests 12/30/24 05:20 Brief Hx & Hospital Course: This is a 59-year-old male with a history of type 2 diabetes, diabetic neuropathy, bilateral transmetatarsal amputations, and hernia surgery who presented to the emergency department via EMS with a wound in the right gluteal area. The patient reported falling from the toilet three days prior due to difficulty walking, related to his amputations. He landed on his buttocks, did not lose consciousness, and began experiencing significant pain and bleeding from the area. Over the following days, he developed chills, fever, fatigue, diaphoresis, and general malaise. He denied chest pain, shortness of breath, abdominal symptoms, urinary complaints, and recent sick contacts. On examination, the patient reported [id number] pain in the gluteal area, which had improved since the previous day. Imaging revealed a left gluteal abscess with extension toward the rectum, and he underwent incision and drainage on December 28, 2024. He was started on intravenous cefepime, vancomycin, and clindamycin. Blood cultures showed no growth, HIV testing was negative, and hepatitis panel is pending. He was also diagnosed with anal condyloma acuminatum and evaluated by surgery and wound care teams. The patient was found to have transaminitis and fatty liver, confirmed by ultrasound showing hepatic steatosis. Liver function tests are being monitored and are improving. His diabetes remains uncontrolled with an A1c of 8.6%, and he has a right foot ulcer at the amputation stump. Wound cultures were sent, and foot CT showed no evidence of osteomyelitis. He was started on insulin Lantus 30 units nightly and insulin Lispro 8 units before meals. Additional chronic conditions include obesity, mixed dyslipidemia managed with atorvastatin 40 mg nightly, and hypothyroidism managed with levothyroxine 150 mcg daily. Thyroid labs are pending. The patient was counseled on lifestyle modifications for tobacco, cannabis, and methamphetamine dependence. At discharge, the patient was prescribed Augmentin 875 mg twice daily for 7 days, Bactrim DS twice daily for 7 days, insulin Lantus and Lispro, levothyroxine, atorvastatin, Miralax as needed, and Colace twice daily. He will follow up in the discharge clinic in one week and with Dr. Blake in the surgery outpatient clinic in one week for post-operative care and drain removal. Physical examination Gen - no pallor, no icterus, no cyanosis, no clubbing, no peripheral edema . Skin - Patients skin is warm and dry. HEENT - normocephalic, atraumatic, moist mucous membranes. Neck - full ROM, no LAD, no JVD Pulmonary - B/L equal breath sounds, no crackles, no wheezing, no stridor. cardiovascular - regular S1,S2 heard, no added sounds, no murmurs heard. GI - soft, nontender abdomen. no hepatosplenomegaly. Bowel sounds normoactive Neurological - Patient is A/O X 3. Bilateral upper extremity strength 5/5, bilateral lower extremity strength 5/5, no facial droop, normal speech, no tremor, no sensory deficiets. Gluteal area: Status post surgical drainage of the abscess with drain in-situ having serosanguineous drainage. On perianal area there is skin colored, fleshy, cauliflower-like growths extending up to the genital area. Extremities: Bilateral feet amputation at metatarsals Operations or Procedures PATIENT: PAULO SANTOS ACCT: [id number] UNIT: [id number] : 1965 LOC: [facility] ROOM / BED: [facility] / A AGE / SEX: 59 / M ADM STATUS: ADM IN SERVICE 1056 ORDERING PHYSICIAN: ANIKET DE LA ROSA RESIDENT PROCEDURE(s): RFTCT - CT R FOOT WO CONTRAST REASON: uncontrolled T2DM, ?osteomyelitis ORDER NUMBER(s): [id number], ACCESSION NUMBER(s): [id number] EXAM: CT CT R FOOT WO CONTRAST INDICATION: uncontrolled T2DM, osteomyelitis TECHNIQUE: Axial images of right foot without contrast have been obtained along with coronal and sagittal reformatted images. All CT scans at this facility use dose modulation, iterative reconstruction, and/or weight based dosing when appropriate to reduce radiation dose to as low as reasonably achievable. COMPARISON: None FINDINGS: BONES: No CT evidence of an acute fracture or aggressive osseous lesion.status post prior transmetatarsal amputation. Significant hypertrophic presumed Charcot arthropathy and/or sequelae of prior trauma prominent areas of heterotopic calcification inferior to the lateral malleolus and of the posterior subtalar recess. Extensive areas of subchondral cystic change throughout the visualized articulations. No abnormal osseous erosion, lucency, sclerosis to suggest osteomyelitis. Small plantar calcaneal spur. MUSCLES: Severe fatty atrophy of the intrinsic musculature JOINT SPACES: No joint effusion. OTHER: None. IMPRESSION: 1. No CT evidence of osteomyelitis. Severe degenerative change of the subtalar joint with likely lateral hindfoot ankle impingement. 2. Sequelae of hypertrophic likely Charcot arthropathy with prominent areas of heterotopic ossification most significant of the medial talus and inferior to lateral malleolus. Likely contributing to osseous protrusion of the lateral aspect of the ankle. PATIENT: PAULO SANTOS ACCT: [id number] UNIT: [id number] : 1965 LOC: [facility] ROOM / BED: 1011ER / A AGE / SEX: 59 / M ADM STATUS: ADM IN SERVICE 1540 ORDERING PHYSICIAN: PAUL BOYCE RESIDENT PROCEDURE(s): LIVUS - LIVER REASON: transaminitis ORDER NUMBER(s): [id number], ACCESSION NUMBER(s): [id number] ULTRASOUND ABDOMEN, LIMITED RIGHT UPPER QUADRANT: REASON FOR EXAM: transaminitis TECHNIQUE: Real-time sector scans in the transverse and longitudinal planes were obtained through the right upper quadrant of the abdomen. FINDINGS: The liver is enlarged at 23.3 cm in length. The liver is diffusely echogenic. There is hepatopetal flow in the portal vein. There is no intrahepatic nor extrahepatic biliary ductal dilatation. The common bile duct measures 4 mm. No gallstones or sludge are identified. There is no gallbladder wall thickening nor pericholecystic fluid. There is no sonographic Moreno's sign. The visualized portion of the pancreas is unremarkable. The right kidney measures 11.8 cm. No hydronephrosis or nephrolithiasis is identified. There is no evidence of right renal mass or cyst. The visualized portions of the abdominal aorta demonstrate no evidence of aneurysmal dilatation. The visualized inferior vena cava is unremarkable. There is no free fluid identified in the right upper quadrant. IMPRESSION: Hepatomegaly The liver is diffusely echogenic which may be secondary to steatosis or another diffuse hepatic process. Correlate clinically and with liver function tests. PATIENT: PAULO SANTOS ACCT: [id number] UNIT: [id number] : 1965 LOC: [facility]FL[facility] ROOM / BED: 1011-ER / A AGE / SEX: 59 / M ADM STATUS: ADM IN SERVICE 1451 ORDERING PHYSICIAN: ARMIDA DONATO MD PROCEDURE(s): ABPL - CT AB PEL WO CON-NO ORAL OR IV REASON: pleviccellulitis ORDER NUMBER(s): [id number], ACCESSION NUMBER(s): [id number] EXAM: CT CT AB PEL WO CON-NO ORAL OR IV INDICATION: pleviccellulitis TECHNIQUE: Volumetric multidetector CT images of the abdomen and pelvis were obtained without contrast. All CT scans at this facility use dose modulation, iterative reconstruction, and/or weight based dosing when appropriate to reduce radiation dose to as low as reasonably achievable. COMPARISON: [facility] [place] on DOS: 12/16/21 FINDINGS: [LOWER CHEST]: The partially visualized lung bases are clear without a pleural effusion. The cardiac size is normal without pericardial effusion. [LIVER]: Normal hepatic size without suspicious focal lesion. [GALLBLADDER AND BILIARY TREE]: No cholelithiasis. [SPLEEN]: Unremarkable. [PANCREAS]: Unremarkable. [ADRENAL GLANDS]: Unremarkable [KIDNEYS]: No hydronephrosis. No nephroureterolithiasis. [BLADDER]: Unremarkable for the degree distention. [REPRODUCTIVE ORGANS]: Unremarkable. [BOWEL/MESENTERY]: Stomach is normal. No CT evidence of bowel obstruction. proximal sigmoid colonic diverticulosis. [ASCITES]: Absent [LYMPHADENOPATHY]: No pathologically enlarged lymph nodes by CT size criteria [VASCULATURE]: No aneurysmal dilatation. [ABDOMINAL WALL]: Unremarkable. [MUSCULOSKELETAL]: Significant abnormal air-fluid collection located along the left medial inferior buttock extending towards the rectum measuring 8 x 5.4 cm. Edema extending superiorly along the ischioanal fossa. Significant abnormal inflammatory stranding extending along the intergluteal cleft and asymmetric thickening possibly of the left external sphincter of the anal verge. Multifocal degenerative change of the visualized spine. IMPRESSION: 1. Significant abnormal air-fluid collection located along the left medial inferior buttock extending towards the rectum measuring 8 x 5.4 cm. 2. Edema extending superiorly along the ischioanal fossa. 3. Significant abnormal inflammatory stranding propagating along the intergluteal cleft and asymmetric thickening possibly of the left external sphincter of the anal verge. 4. Overall appearance superior rectal abscess however correlate for sequelae of sacral decubitus ulcer - PATIENT: PAULO SANTOS ACCT: [id number] UNIT: [id number] : 1965 LOC: ER ROOM / BED: / AGE / SEX: 59 / M ADM STATUS: REG ER SERVICE 1314 ORDERING PHYSICIAN: ARMIDA DONATO MD PROCEDURE(s): CXRP - CHEST PORTABLE REASON: sob ORDER NUMBER(s): [id number], ACCESSION NUMBER(s): [id number] EXAM: XY CHEST PORTABLE Indication: sob Technique: Single frontal view of the chest was obtained Comparison: CHEST PORTABLE on DOS: 12/15/21, CXRP on DOS: 12/15/21 FINDINGS: Lines and Tubes: None Lungs: No focal consolidation. Pleura: No effusion. No pneumothorax. Cardiomediastinal contours: Unremarkable Bones: No acute osseous abnormality. IMPRESSION: No acute cardiopulmonary disease. Patient: PAULO SANTOS Acct: [id number] : 1965 Loc: [facility] Age/Sex: 59/M Room: [facility] / Bed: A Attending Phy: PAUL BOYCE RESIDENT Operative Report - 2 Report Details Date: 12/28/24 Preop Diagnosis: Left perirectal abscess Postop Diagnosis: Same Surgeon: Mojgan Blake MD Architectural Inspector: None Anesthesiologist: Reinaldo Overton CRNA Anesthesia: General, Local Drains: Quarter-inch [place] drain Consent: The surgery and its risks including but not limited to infection, bleeding, possible future development of anal fistula, possible perioperative LA or stroke were explained to the patient. All questions were answered to his satisfaction. He expressed verbal understanding and wished to proceed with the surgery. Complications: None Estimated Blood Loss: 10 mL Fluids: 500 mL Name of Procedure Performed Incision and drainage of left perirectal abscess Procedure Details Procedure Details: After induction of general anesthesia, patient was placed in a high lithotomy position and his anal region was prepped and draped in standard surgical fashion. Patient already had a small skin opening in the left perianal region that was spontaneously draining with some purulent fluid. Proximally 20 mL of 1% lidocaine with epinephrine was used as local anesthesia. This was gently explored revealing a large left perirectal abscess cavity. The abscess cavity was swabbed for Gram stain and culture. The cavity extended more anteriorly and so a quarter-inch counter incision was made more anteriorly to completely drain the entire abscess cavity. These two incisions were kept open using quarter- inch [place] drain. The anal sphincter was preserved. The abscess cavity was then well irrigated with diluted Betadine irrigation and packed with quarter- inch iodoform packing strips. Surgical site was cleaned and dried and dressings were applied. The sponge, needle, instrument count at the end of the case were reported to be correct by the nursing staff. The patient tolerated procedure well and was awakened, extubated and transferred to recovery in stable condition. Specimen: Gram stain and culture from the left perirectal abscess Condition Stable Disposition Still a Patient MOJGAN BLAKE MD Dec 28, 2024 16:46 DICTATED BY:MOJGAN BLAKE MD DICTATED DATE/TIME:12/28/24 1646 ELECTRONICALLY SIGNED BY:MOJGAN BLAKE MD 12/28/241645 Condition at Discharge: Stable Final Diagnosis/Problems List Gluteal abscess s/p surgical Incision and drainage Anal warts Uncontrolled type 2 DM with hyperglycemia dyslipidemia Uncontrolled hyperthyroidism Discharge Disposition: Home Discharge Instruct/Medications Diet: Consistent carbohydrate Diet comment: drink plenty of water and eat high fiber diet Activity: See Comment Follow Up/Referral: Follow up in the discharge clinic in 1 week Follow up in the surgery outpatient clinic in one week with Dr. Blake for followup after surgery and drain removal Medications: augmentin 875mg twice daily for 7 days bactrim DS 1 tab twice daily for 7 days Insulin lantus 30 U once daily at night Insulin lispro 8 U before each meal ( if you miss the meal, do not take the insulin ) Levothyroxine 150mcg daily at 6am continue atorvastatin 40mg daily at night miralax 1 packet daily as needed for constipation colace 100mg twice daily ( stool softener ) Scheduled Amoxicillin & Pot Clavulanate (Augmentin Tablet), 875 MG PO BID Atorvastatin Calcium (Atorvastatin Calcium), 1 TAB PO HS Docusate Sodium (Colace), 100 MG PO BID Insulin Glargine (Lantus), 30 UNITS SC HS Insulin Lispro (Insulin Lispro Kwikpen), 8 UNIT SC AC Levothyroxine Sodium (Levothyroxine Sodium), 150 MCG PO QAM@0600 Sulfamethoxazole W/Trimethopri (Bactrim Ds Tablet), 1 TAB PO BID Scheduled PRN Polyethylene Glycol (Miralax), 17 GM PO DAILYP PRN Discontinued Medications Amoxicillin & Pot Clavulanate (Augmentin), 1 TAB PO BID Glipizide (Glipizide), 10 MG PO DAILY, (Reported) Levothyroxine Sodium (Levothyroxine Sodium), 75 MCG PO QAM, (Reported) Metformin Hydrochloride (Metformin Hcl), 1 TAB PO BID, (Reported) Prednisone (Prednisone), 20 MG PO BID Discharge Statement: "Patient was advised to return to the ER or call 911 if any headaches, dizziness, shortness of breath, chest pain, abdominal pain, bleeding, fevers, or worsening of medical condition. Patient was counseled about treatment plan, medications, possible side effects, patientverbalized understanding. All questions were answered to the best of my ability. This discharge took greater then 30 minutes in planning, reviewing documentation, counseling the patient, and discussing with other team members." ASSESSMENT ASSESSMENT Assessment Gluteal abscess s/p surgical Incision and drainage Anal warts Uncontrolled type 2 DM with hyperglycemia dyslipidemia Uncontrolled hyperthyroidism Date of Service: Dec 30, 2024 Billing Provider: JUDY CAMERON MD Common Visit Codes: 73028-IAF/OBS DISCH DAY >30min ERIN BYRNES Dec 30, 2024 16:12 JUDY CAMERON MD Dec 31, 2024 18:49
[2024-12-30 16:20] VITALS: BP 114/64; PULSE 67; RESP 18; TEMP 97.8; O2SAT 95
== END 2024-12-30 17:45 | disposition home or self-care (01) | DRG 345 ==
LOC: EDBD 12:21 → ER 12:21 → OVERFLOW 15:40 → WEST WING 20:45
PROVIDERS: ADMIT Internal Medicine Geriatric Medicine; ATTEND Internal Medicine Geriatric Medicine
PROC: 0D9P0ZX Drainage of Rectum, Open Approach, Diagnostic (ICD-10-PCS; principal; 2024-12-28 16:10)
DX: K61.1 Rectal abscess (principal); E87.20 Acidosis, unspecified; L02.31 Cutaneous abscess of buttock; A63.0 Anogenital (venereal) warts; R74.01 Elevation of levels of liver transaminase levels; E66.9 Obesity, unspecified; E03.9 Hypothyroidism, unspecified; L97.519 Non-pressure chronic ulcer of other part of right foot with unspecified severity; E11.65 Type 2 diabetes mellitus with hyperglycemia; F17.210 Nicotine dependence, cigarettes, uncomplicated; E11.40 Type 2 diabetes mellitus with diabetic neuropathy, unspecified; F15.10 Other stimulant abuse, uncomplicated; F12.20 Cannabis dependence, uncomplicated; E78.2 Mixed hyperlipidemia; Z79.2 Long term (current) use of antibiotics; Z79.899 Other long term (current) drug therapy; E11.621 Type 2 diabetes mellitus with foot ulcer
CPT/HCPCS: 36415; 71045; 73700; 74176; 76705; 80048; 80053; 80061; 80074; 80202; 80307; 81001; 82962; 83036; 83605; 84439; 84443; 84480; 85025; 85610; 85730; 86703; 87040; 87081; 87086; 87205; 96361; 96365; 99291; 99292; G0378; J1815; J2704; J3490